=== PATIENT | female | born 1940 | race Caucasian/White ===

== ENCOUNTER 2017-02-15 18:25 | Emergency (ER) | payer MEDICARE, OTHER ==
[2017-02-15 19:44] VITALS: BP 148/88
[2017-02-15] MEDS ORDERED: Ipratropium 0.5MG/2.5ML NEB* 0.5 MG/2.5 ML NEB.SOLN INH ONE (20:10)
[2017-02-15] MEDS ORDERED: Albuterol 2.5 MG/3 ML NEB.SOL* (0.083%) INH ONE (20:10)
--- NOTE | 2017-02-15 20:11 | UC ---
Respiratory Complaint HPI - History of Current Complaint Stated Complaint: THROAT,FEVER Hx Obtained From: Patient Hx Last Menstrual Period: n/a Onset/Duration: Sudden Onset - 4 days ago with earache, sorethroat and headache. , Worse Since - yesterday with fevers, coughing more SOB. Timing: Constant Severity Initially: Mild Severity Currently: Moderate Character: Cough: Nonproductive Associated Signs And Symptoms: Positive: Dyspnea, Fever, Chills, Pleuritic Chest Pain - left upper chest with coughing., Wheezing, URI, Hoarseness. Negative: Nasal Congestion - Risk Factors Pulmonary Embolism Risk Factors: Smoking Cardiac Risk Factors: Smoking Pseudomonas Risk Factors: Chronic Lung Disease - Allergies/Home Medications Allergies/Adverse Reactions: Allergies Allergy/AdvReac Type Severity Reaction Status Date / Time Amoxicillin Allergy Severe Swelling Verified 02/15/17 19:44 Of Face,Lips,& Throat Home Medications: Home Medications Acetaminophen [Acetaminophen Extra Stren] 1,000 mg PO Q6H PRN 02/15/17 [History Confirmed 02/15/17] Ipratropium HFA INHALER(NF) [Atrovent Hfa Inhaler(NF)] 2 puff INH Q6H PRN [History Confirmed 02/15/17] PMH/Surg Hx/FS Hx/Imm Hx Respiratory History: COPD - Surgical History Surgical History: Yes Surgery Procedure, Year, and Place: Bilateral Inguinal Herniorrhaphy, - Family History Known Family History: Positive: Cardiac Disease, Hypertension, Diabetes - Social History Occupation: Retired Lives: With Family Alcohol Use: None Substance Use Type: None Smoking Status (MU): Current Every Day Smoker Type: Cigarettes Amount Used/How Often: 1ppd Length of Time of Smoking/Using Tobacco: 60 years Have You Smoked in the Last Year: Yes When Did the Patient Quit Smoking/Using Tobacco: quit 04/2015 Household Exposure Type: Cigarettes Cessation Counseling: Patient Advised to Stop - Immunization History Most Recent Influenza Vaccination: 3618-0441 Most Recent Pneumonia Vaccination: 2013 Review of Systems Constitutional: Fever, Chills ENT: Sore Throat, Ear Ache Respiratory: Shortness Of Breath, Cough Cardiovascular: Chest Pain - with coughing Neurological: Headache - frontal. All Other Systems Reviewed And Are Negative: Yes Physical Exam Triage Information Reviewed: Yes Appearance: No Pain Distress, Well-Nourished, Ill-Appearing Vital Signs: Initial Vital Signs Temp 99.4 F 02/15/17 19:28 Pulse 97 02/15/17 19:28 Resp 38 02/15/17 19:28 BP 148/88 02/15/17 19:28 Pulse Ox 88 02/15/17 19:28 Vital Signs Reviewed: Yes Eyes: Positive: Conjunctiva Inflamed ENT: Positive: Pharyngeal erythema - with white on the soft palate behind denture plate.. Negative: TMs normal - obscurred by wax bilaterally UC Diagnostic Evaluation - Laboratory O2 Sat by Pulse Oximetry: 88 Re-Evaluation - Re-Evaluation First Eval Re-Evaluation Time: 20:58 Change: Improved - wheezing is gone. Respiratory Course/Dx - Differential Dx/Diagnosis Differential Diagnosis/HQI/PQRI: Bronchitis, Exacerbation Of COPD, Lower Resp Infection, Sinusitis Provider Diagnoses: Acute sinusitis. COPD with acute exacerbation. Discharge - Discharge Plan Condition: Stable Disposition: HOME Prescriptions: Sulfamethox/Trimethoprim DS* [Bactrim DS 800/160 TAB*] 1 tab PO BID #20 tab predniSONE TAB* [Deltasone TAB*] 20 mg PO DAILY #18 tab Patient Education Materials: Sinusitis (ED), Sulfamethoxazole/Trimethoprim (By mouth), COPD (Chronic Obstructive Pulmonary Disease) (ED), Prednisone (By mouth) Referrals: Mert Jacob MD [Primary Care Provider] - 3 Days (Recheck breathing and oxygen status.)
[2017-02-15] MEDS ORDERED: Ibuprofen TAB* 600 MG PO ONE (20:36)
[2017-02-15] MEDS ORDERED: methylPREDNISolone 125 MG* 2 ML VIAL IM ONE (20:57)
[2017-02-15] MEDS ORDERED: Sulfamethox/Trimethoprim DS 800/160* TAB PO ONE ×2 (20:57→21:11)
--- NOTE | 2017-02-15 20:57 | RAD ---
HISTORY: Cough, fever, shortness of breath COMPARISONS: October 08, 2014 VIEWS: 4: Frontal dual-energy and lateral views of the chest. FINDINGS: CARDIOMEDIASTINAL SILHOUETTE: The cardiomediastinal silhouette is normal. TIFFANY: The tiffany are normal. PLEURA: The costophrenic angles are sharp. No pleural abnormalities are noted. LUNG PARENCHYMA: There is hyperinflation with flattening of the diaphragm and expansion of the AP diameter of the chest. ABDOMEN: The upper abdomen is clear. There is no subphrenic gas. BONES AND SOFT TISSUES: No bone or soft tissue abnormalities are noted. OTHER: None. IMPRESSION: HYPERINFLATION, CONSISTENT WITH COPD. NO ACTIVE CARDIOPULMONARY DISEASE.
== END 2017-02-15 21:23 | disposition home or self-care (01) ==
LOC: UCCORT 18:25
DX: J01.90 Acute sinusitis, unspecified (principal); J44.1 Chronic obstructive pulmonary disease with (acute) exacerbation; Z87.891 Personal history of nicotine dependence
CPT/HCPCS: 71020; 93005; 96372; 99212; A9270-GY; G0463; J2930; J7644

== ENCOUNTER 2017-02-21 12:51 | Emergency (ER) | payer MEDICARE, OTHER ==
[2017-02-21 13:35] VITALS: BP 150/83
--- NOTE | 2017-02-21 13:47 | UC ---
Throat Pain/Nasal Chaitanya HPI - HPI Summary HPI Summary: sore throat x 2 days has been on prednisone and bactirm for the past 6 days and no having sever sore throat, mouth pain , no fever, no chills, c/o cough / chest congestion x 2 weeks - History of Current Complaint Chief Complaint: UCRespiratory Stated Complaint: SORE THROAT Time Seen by Provider: 02/21/17 13:36 Hx Obtained From: Patient Hx Last Menstrual Period: n/a Onset/Duration: Gradual Onset, Lasting Days - 2, Still Present Severity: Severe Cough: Productive - green and yellow sputum Associated Signs & Symptoms: Positive: Nasal Discharge. Negative: Sinus Discomfort, Fever, Vomiting, Rash - Allergies/Home Medications Allergies/Adverse Reactions: Allergies Allergy/AdvReac Type Severity Reaction Status Date / Time Amoxicillin Allergy Severe Swelling Verified 02/21/17 13:24 Of Face,Lips,& Throat PMH/Surg Hx/FS Hx/Imm Hx Previously Healthy: Yes Cardiovascular History: Hypertension Respiratory History: COPD - Surgical History Surgical History: Yes Surgery Procedure, Year, and Place: Bilateral Inguinal Herniorrhaphy, - Family History Known Family History: Positive: None, Cardiac Disease, Hypertension, Diabetes - Social History Alcohol Use: None Substance Use Type: None Smoking Status (MU): Current Every Day Smoker Type: Cigarettes Amount Used/How Often: 3 CIGS PER DAY Length of Time of Smoking/Using Tobacco: 60 years Have You Smoked in the Last Year: Yes When Did the Patient Quit Smoking/Using Tobacco: quit 04/2015 Household Exposure Type: Cigarettes - Immunization History Most Recent Influenza Vaccination: [id number] Most Recent Pneumonia Vaccination: 2013 Review of Systems Constitutional: Negative Skin: Negative Eyes: Negative ENT: Sore Throat Respiratory: Cough Cardiovascular: Negative Gastrointestinal: Negative All Other Systems Reviewed And Are Negative: Yes Physical Exam Triage Information Reviewed: Yes Appearance: Well-Appearing, No Pain Distress, Well-Nourished Vital Signs: Initial Vital Signs Temp 98.2 F 02/21/17 13:26 Pulse 74 02/21/17 13:26 Resp 24 02/21/17 13:26 BP 150/83 02/21/17 13:26 Pulse Ox 95 02/21/17 13:26 Vital Signs Reviewed: Yes Eyes: Positive: Conjunctiva Clear ENT: Positive: Normal ENT inspection, Hearing grossly normal, Pharyngeal erythema - + thrush Respiratory: Positive: Chest non-tender, Lungs clear, Normal breath sounds, No respiratory distress Cardiovascular: Positive: RRR, No Murmur, Pulses Normal Abdominal Exam: Normal Skin Exam: Normal Throat Pain/Nasal Course/Dx - Differential Dx/Diagnosis Provider Diagnoses: oral thrush. bronchitis Discharge - Discharge Plan Condition: Stable Disposition: HOME Prescriptions: Nystatin SUSPENSION ORAL SYR* 5 ml PO QID #200 ml Patient Education Materials: Oral Candidiasis (ED), Acute Bronchitis (ED) Referrals: Mert Jacob MD [Primary Care Provider] - 7 Days
== END 2017-02-21 14:05 | disposition home or self-care (01) ==
LOC: UCCORT 12:51
DX: B37.0 Candidal stomatitis (principal); J40 Bronchitis, not specified as acute or chronic; R09.81 Nasal congestion; I10 Essential (primary) hypertension; J44.9 Chronic obstructive pulmonary disease, unspecified; Z88.1 Allergy status to other antibiotic agents; Z87.891 Personal history of nicotine dependence
CPT/HCPCS: 99212; G0463

== ENCOUNTER 2018-08-29 15:40 | Emergency (ER) | payer MEDICARE, OTHER ==
[2018-08-29] MEDS ORDERED: predniSONE TAB* 20 MG PO ONE (15:50)
[2018-08-29] MEDS ORDERED: Albuterol/Ipratropium NEB.SOL* Albuterol 2.5 MG/Ipratropium 0.5 MG 3 ML INH ONE (15:50)
--- NOTE | 2018-08-29 15:55 | UC ---
UC General HPI - HPI Summary HPI Summary: pt c/o increasing cough with congestion and sob x 3-4 days. denies fever and cp. hx copd and this is c/w a flare. never hospitalized for her COPD. - History of Current Complaint Chief Complaint: UCRespiratory Stated Complaint: SINUS/COUGH/CONGESTION Time Seen by Provider: 08/29/18 15:43 Hx Obtained From: Patient Hx Last Menstrual Period: n/a Onset/Duration: Gradual Onset Timing: Constant Pain Intensity: 6 Associated Signs & Symptoms: Positive: Cough, SOB, Wheezing. Negative: Chest Pain, Fever - Allergy/Home Medications Allergies/Adverse Reactions: Allergies Allergy/AdvReac Type Severity Reaction Status Date / Time amoxicillin Allergy Swelling Verified 08/29/18 15:46 Of Face,Lips,& Throat PMH/Surg Hx/FS Hx/Imm Hx Respiratory History: COPD - Surgical History Surgical History: Yes Surgery Procedure, Year, and Place: Bilateral Inguinal Herniorrhaphy, - Family History Known Family History: Positive: None, Cardiac Disease, Hypertension, Diabetes - Social History Alcohol Use: None Substance Use Type: None Smoking Status (MU): Former Smoker Type: Cigarettes Amount Used/How Often: 3 CIGS PER DAY Length of Time of Smoking/Using Tobacco: 60 years Have You Smoked in the Last Year: Yes When Did the Patient Quit Smoking/Using Tobacco: quit 04/2015 Household Exposure Type: Cigarettes - Immunization History Most Recent Influenza Vaccination: [id number] Most Recent Pneumonia Vaccination: 2013 Vaccination Up to Date: Yes Review of Systems All Other Systems Reviewed And Are Negative: Yes Constitutional: Positive: Negative Skin: Positive: Negative Eyes: Positive: Negative ENT: Positive: Negative Respiratory: Positive: Shortness Of Breath, Cough Cardiovascular: Negative: Palpitations, Chest Pain Gastrointestinal: Positive: Negative Genitourinary: Positive: Negative Motor: Positive: Negative Neurovascular: Positive: Negative Musculoskeletal: Positive: Negative Neurological: Positive: Negative Psychological: Positive: Negative Physical Exam Triage Information Reviewed: Yes Appearance: Well-Appearing Vital Signs: Initial Vital Signs Temp 97.5 F 08/29/18 15:42 Pulse 90 08/29/18 15:42 Resp 28 08/29/18 15:42 BP 128/74 08/29/18 15:42 Pulse Ox 94 08/29/18 15:42 Vital Signs Reviewed: Yes Eyes: Positive: Conjunctiva Clear ENT: Positive: TMs normal, Other - Erythema to posterior pharynx adn roof of mouth with white plaques. Negative: Nasal congestion, Nasal drainage Neck: Positive: Supple, Nontender, No Lymphadenopathy, Other: - No JVD Respiratory: Positive: Other: - Mild tachypnia and dyspnea with conversation. BS diffusely decreased with scattered mac wheezes. Cough is harsh and bronchospastic but non productive. Cardiovascular: Positive: RRR, No Murmur Abdomen Description: Positive: Nontender, No Organomegaly, Soft Bowel Sounds: Positive: Present Musculoskeletal: Positive: ROM Intact Neurological: Positive: Alert Psychological: Positive: Age Appropriate Behavior Skin Exam: Normal Diagnostics - Radiology No standard instances Radiology Interpretation Completed By: Radiologist - CXR=HYPERINFLATION, CONSISTENT WITH COPD. NO ACTIVE CARDIOPULMONARY DISEASE Re-Evaluation - Re-Evaluation First Eval Re-Evaluation Time: 16:00 Change: Improved - slight better aeration Second Eval Re-Evaluation Time: 17:01 Change: Improved - pt continues to feel breathing is a little easier and aeration has improved but pt is still very wheezy and rr=28. Course/Dx - Course Course Of Treatment: pt continues to have RR 28 and some sob with conversation alone plus persistent cough thus ER transfer advised. pt refused despite risk for worsening, disability and . she is a&o. she is able to make decisions thus I must respect her refusal of transfer to ER. she agrees to leave ama. - Differential Dx - Multi-Symptom Differential Diagnoses: Other - bronchitis, copd exacerbation, pneumonia. no concern for CHF, cardiac pathology. doubt influenza plus pt had immunization and is refusing testing for that. - Diagnoses Provider Diagnosis: Thrush, oral, COPD exacerbation Discharge - Sign-Out/Discharge Documenting (check all that apply): Patient Departure All imaging exams completed and their final reports reviewed: Yes - Discharge Plan Condition: Stable Disposition: AGAINST MEDICAL ADVICE Prescriptions: DOXYcycline CAP(*) [DOXYcycline 100MG CAP(*)] 100 mg PO BID 7 Days #14 cap Nystatin SUSPENSION* 500,000 units .SEE ORDER QID 10 Days #200 ml predniSONE [Prednisone 20 MG TAB] 40 mg PO DAILY 5 Days #10 tablet Patient Education Materials: Oral Candidiasis (ED), COPD (Chronic Obstructive Pulmonary Disease) (ED) Referrals: Mert Jacob MD [Primary Care Provider] - 1 Day Additional Instructions: GO TO ER AT ANY TIME IF YOU CHANGE YOUR MIND. USE YOU NEBULIZER EVERY 6 HOURS. - Billing Disposition and Condition Condition: STABLE Disposition: Against Medical Advice
[2018-08-29] MEDS ORDERED: Albuterol 2.5 MG/3 ML NEB.SOL* (0.083%) INH ONE (16:24)
[2018-08-29 16:56] VITALS: BP 117/72
[2018-08-29] MEDS ORDERED: Nystatin SUSPENSION* 100000 UNITS/ML 5 ML UDC PO ONE ×2 (17:10→17:16)
[2018-08-29] MEDS ORDERED: DOXYcycline CAP(*) 100 MG PO ONE (17:14)
== END 2018-08-29 17:28 | disposition left against medical advice (07) ==
LOC: UCCORT 15:40
DX: J44.1 Chronic obstructive pulmonary disease with (acute) exacerbation (principal); B37.0 Candidal stomatitis; J39.2 Other diseases of pharynx; R09.81 Nasal congestion; Z88.0 Allergy status to penicillin; Z87.891 Personal history of nicotine dependence
CPT/HCPCS: 71046; 99213; A9270-GY; G0463; J7512

== ENCOUNTER 2019-01-10 20:17 | Inpatient (IN) | payer MEDICARE ==
[2019-01-10] MEDS ORDERED: NS 0.9% 1000 ML** 1,000 ML IV ONE (20:32)
[2019-01-10] MEDS ORDERED: methylPREDNISolone 125 MG* 2 ML VIAL IV ONE (20:32)
[2019-01-10] MEDS ORDERED: cefTRIAXone(*) 1 GM in NS 0.9% 50 ML* 50 ML IVPB ONE (20:36)
--- NOTE | 2019-01-10 20:36 | ED ---
Shortness of Breath - HPI Summary HPI Summary: This pt is a 78 y/o female presenting to [facility] via EMS c/o SOB and productive cough. Pt reports her SOB worsened today around 15:00. She describes a productive cough with thick and yellow sputum. Pt notes she has lower chest pain associated with her cough. Additionally she presents to the ED with a fever of 101.9F. Pt was given albuterol x1 and Atrovent at home [employer]. She has hx of COPD. She does not use any oxygen at baseline at home. Pt quit smoking in August 2018. - History of Current Complaint Chief Complaint: EDShortnessOfBreath Time Seen by Provider: 01/10/19 20:29 Hx Obtained From: Patient Onset/Duration: Lasting Hours, Still Present Timing: Constant Current Severity: Moderate Dyspnea At: Rest Aggrevating Factors: Nothing Alleviating Factors: Nothing Associated Signs & Symptoms: Cough (Productive), Chest Pain w/Cough, Fever - Allergy/Home Medications Allergies/Adverse Reactions: Allergies Allergy/AdvReac Type Severity Reaction Status Date / Time amoxicillin Allergy Swelling Verified 08/29/18 15:46 Of Face,Lips,& Throat PMH/Surg Hx/FS Hx/Imm Hx Endocrine/Hematology History: Denies: Hx Diabetes, Hx Thyroid Disease Cardiovascular History: Denies: Hx Hypertension, Other Cardiovascular Problems/Disorders Respiratory History: Reports: Hx Chronic Obstructive Pulmonary Disease (COPD) Denies: Hx Asthma GI History: Denies: Hx Ulcer Comment Only: Other GI Disorders - dubble hernia repair rt and lt groin area Musculoskeletal History: Reports: Hx Arthritis - LEFT HIP Sensory History: Reports: Hx Cataracts - JAN, Hx Contacts or Glasses - GLASSES Denies: Hx Hearing Aid Opthamlomology History: Reports: Hx Cataracts - JAN, Hx Contacts or Glasses - GLASSES - Surgical History Surgery Procedure, Year, and Place: Bilateral Inguinal Herniorrhaphy, Hx Anesthesia Reactions: Yes - N/V Infectious Disease History: No Infectious Disease History: Denies: Hx Clostridium Difficile, Hx Hepatitis, Hx Human Immunodeficiency Virus (HIV), Hx of Known/Suspected MRSA, Hx Shingles, Hx Tuberculosis, Hx Known/ Suspected VRE, Hx Known/Suspected VRSA, History Other Infectious Disease, Traveled Outside the [place] in Last 30 Days - Family History Known Family History: Positive: Cardiac Disease, Hypertension, Diabetes - Social History Alcohol Use: None Substance Use Type: Reports: None Smoking Status (MU): Former Smoker Type: Cigarettes Amount Used/How Often: 3 CIGS PER DAY Length of Time of Smoking/Using Tobacco: 60 years Have You Smoked in the Last Year: Yes Review of Systems Positive: Fever Positive: Chest Pain Positive: Shortness Of Breath, Cough All Other Systems Reviewed And Are Negative: Yes Physical Exam - Summary Physical Exam Summary: VITAL SIGNS: Reviewed. GENERAL: Patient is a well-developed and nourished female. Patient is able to speak in partial sentences. HEAD AND FACE: No signs of trauma. No ecchymosis, hematomas or skull depressions. No sinus tenderness. EYES: PERRLA, EOMI x 2, No injected conjunctiva, no nystagmus. EARS: Hearing grossly intact. Ear canals and tympanic membranes are within normal limits. MOUTH: Oropharynx within normal limits. NECK: Supple, trachea is midline, no adenopathy, no JVD, no carotid bruit, no c- spine tenderness, neck with full ROM. CHEST: Symmetric, no tenderness at palpation LUNGS: Decreased breath sounds bilaterally. Crackles in both bases of the lungs. Patient is coughing. CVS: Regular rate and rhythm, S1 and S2 present, no murmurs or gallops appreciated. ABDOMEN: Soft, non-tender. No signs of distention. No rebound no guarding, and no masses palpated. Bowel sounds are normal. EXTREMITIES: FROM in all major joints, no edema, no cyanosis or clubbing. NEURO: Alert and oriented x 3. No acute neurological deficits. Speech is normal and follows commands. SKIN: Dry and warm Triage Information Reviewed: Yes Vital Signs On Initial Exam: Initial Vitals Temp Pulse Resp BP Pulse Ox 101.9 F 98 26 146/60 96 01/10/19 20:20 01/10/19 20:20 01/10/19 20:20 01/10/19 20:20 01/10/19 20:20 Vital Signs Reviewed: Yes Diagnostics - Vital Signs Vital Signs Temp Pulse Resp BP Pulse Ox 01/10/19 20:20 101.9 F 98 26 146/60 96 - Laboratory Result Diagrams: 01/10/19 20:57 01/10/19 20:57 Lab Statement: Any lab studies that have been ordered have been reviewed, and results considered in the medical decision making process. - Radiology Chest XR Radiology Interpretation Completed By: ED Physician Summary of Radiographic Findings: Hyperinflation of both lungs. Questionable infiltrate in right lower lung. Pending official report. - EKG 21:04 Cardiac Rate: Tachycardia - at 111 bpm EKG Rhythm: Sinus Tachycardia Ectopy: PVCs Re-Evaluation - Re-Evaluation First Eval Re-Evaluation Time: 21:42 Comment: Pt is still having wheezing and decreased breath sounds. She is slightly tachycardic. Pt is able to speak in full sentences. Course/Dx - Course Assessment/Plan: This pt is a 78 y/o female presenting to [facility] [place] c/o SOB and productive cough. Pt reports her SOB worsened today around 15:00. She describes a productive cough with thick and yellow sputum. Pt notes she has lower chest pain associated with her cough. Additionally she presents to the ED with a fever of 101.9F. Pt was given albuterol x1 and Atrovent at home [employer]. She has hx of COPD. She does not use any oxygen at baseline at home. Pt quit smoking in August 2018. Past medical history significant for COPD, cataracts, and chronic back pain. In the ED course the patient was placed in a electronic device monitor, IV access was obtained she was given Solu-Medrol and DuoNebs. Patient has a fever and a productive cough therefore she was started on Rocephin. Blood work without any significant abnormality except for white blood cell count of 11.2, CRP of 13.6 and glucose of 125. chest x-ray impression : Hyperinflated lungs, may show some scar tissue in both apices of the lungs, and may have some infiltration versus atelectasis in the right lower lobe. The patient is able to speak in full sentences and now she is feeling a little better, however the patient still has diffuse wheezing and decreased breath sounds. Therefore, I discussed my physical exam and findings with Dr. Holcomb from the hospitalist services and she accepted the patient for admission. Patient is hemodynamically stable, alert and oriented 3. - Diagnoses Provider Diagnoses: COPD exacerbation - Physician Notifications Discussed Care of Patient With: Deloris Holcomb - hospitalist Time Discussed With Above Provider: 21:46 Instructed by Provider To: Admit As Inpatient Discharge - Sign-Out/Discharge Documenting (check all that apply): Patient Departure - Admit to [facility] [place] Received Moderate/Deep Sedation with Procedure: No - Discharge Plan Condition: Stable Disposition: ADMITTED TO [facility] Referrals: Mert Jacob MD [Primary Care Provider] - - Attestation Statements Document Initiated by Scribe: Yes Documenting Scribe: Karen Alejandra Provider For Whom Scribe is Documenting (Include Credential): Bo Jackson MD Scribe Attestation: Karen Gentile, scribed for Bo Jackson MD on 01/10/19 at 2150. Status of Scribe Document: Ready
[2019-01-10] MEDS ORDERED: Albuterol 2.5 MG/3 ML NEB.SOL* (0.083%) INH ONE (21:00)
[2019-01-10] MEDS ORDERED: Albuterol/Ipratropium NEB.SOL* Albuterol 2.5 MG/Ipratropium 0.5 MG 3 ML ONE (21:05)
[2019-01-10] MEDS: Albuterol/Ipratropium NEB.SOL* Albuterol 2.5 MG/Ipratropium 0.5 MG 3 ML INH SCH ×3 (21:05→21:32)
[2019-01-10 21:13] LABS: ABS Basophils 0.1 10^3/ul (0-0.2); ABS Eosinophils 0.1 10^3/ul (0-0.6); ABS Lymphocytes 1.2 10^3/ul (1.0-4.8); ABS Monocytes 0.9 10^3/ul (0-0.8); ABS Neutrophils 9.1 10^3/ul (1.5-7.7); Eosinophil % 0.5 %; Hematocrit 44 % (35-47); Hemoglobin 14.5 g/dL (12.0-16.0); Lymphocyte % 10.4 %; Mean Corpuscular HGB Conc 33 g/dL (31-36); Mean Corpuscular Hemoglobin 30 pg (27-31); Mean Corpuscular Volume 92 fL (80-97); Mean Platelet Volume 8.2 fL (7.4-10.4); Platelet Count 304 10^3/uL (150-450); Red Blood Count 4.85 10^6 /uL (3.70-4.87); Red Cell Distribution Width 14 % (10.5-15); White Blood Count 11.2 10^3/uL (3.5-10.8)
[2019-01-10 21:25] LABS: Activated Partial Thrombo Time 32.7 seconds (26.0-38.0); INR 0.97 (0.82-1.09)
[2019-01-10 21:30] LABS: Albumin 4.3 g/dL (3.2-5.2); Albumin/Globulin Ratio 1.2 (1-3); BUN/Creatinine Ratio 15.2 (8-20); C Reactive Protein 13.65 mg/L (<8.01); Calcium 8.9 mg/dL (8.6-10.3); EGFR African American 71.6 (>60); EGFR Non-African American 59.2 (>60); Globulin 3.6 g/dL (2-4); Potassium 3.8 mmol/L (3.5-5.0); Total Bilirubin 0.3 mg/dL (0.2-1.0); Total Protein 7.9 g/dL (6.4-8.9)
[2019-01-10 21:35] LABS: CKMB ng/mL 2.6 ng/mL (0.6-6.3)
[2019-01-10 21:52] LABS: Urine Appearance Clear; Urine Bacteria Absent (Absent); Urine Bilirubin Negative (Negative); Urine Blood Negative (Negative); Urine Color Yellow; Urine Glucose Negative (Negative); Urine Ketones Negative (Negative); Urine Nitrite Negative (Negative); Urine Protein Negative (Negative); Urine Red Blood Cell Trace(0-2/hpf) (Absent); Urine Specific Gravity 1.012 (1.010-1.030); Urine Squamous Epithelial Cell Present (Absent); Urine Urobilinogen Negative (Negative); Urine White Blood Cell 3+(>20/hpf) (Absent)
[2019-01-10] MEDS ORDERED: Acetaminophen TAB* 325 MG PO ONE (22:13)
[2019-01-10] MEDS ORDERED: Acetaminophen TAB* 325 MG PO PRN (22:13)
[2019-01-10] MEDS ORDERED: Al Hydrox/Mg Hydrox/Simet LIQ* 30 ML UDC PO PRN (22:15)
[2019-01-10] MEDS ORDERED: IPRATROPIUM INH PRN (22:19)
[2019-01-10] MEDS ORDERED: Levalbuterol 1.25MG/0.5ML NEB INH PRN (22:20)
[2019-01-10] MEDS ORDERED: Lactated Ringers 1000 ML Bag* 1,000 ML IV ONE (22:23)
[2019-01-10] MEDS ORDERED: Azithromycin 500 mg/250 ml NS 500 MG/250 ML BAG IVPB ONE (22:24)
[2019-01-10] MEDS ORDERED: Albuterol 2.5 MG/3 ML NEB.SOL* (0.083%) INH SCH (23:00)
[2019-01-10] MEDS ORDERED: Lactated Ringers 1000 ML Bag* 1,000 ML IV SCH (23:00)
[2019-01-10] MEDS: Levalbuterol 1.25MG/0.5ML NEB INH SCH (23:25)
[2019-01-11 00:08] LABS: Influenza A Molecular NEGATIVE (Negative); Influenza B Molecular NEGATIVE (Negative)
[2019-01-11] MEDS: Enoxaparin(*) 40 MG/0.4 ML SYR SUBCUT SCH ×2 (00:17→22:29)
[2019-01-11] MEDS: Benzonatate CAP* 100 MG PO PRN ×2 (00:18→08:21)
--- NOTE | 2019-01-11 00:39 | HP ---
CC: Mert Jacob MD * HISTORY AND PHYSICAL: DATE OF ADMISSION: 01/10/19 TIME OF EVALUATION: 0 PRIMARY CARE PHYSICIAN: Mert Jacob MD. CHIEF COMPLAINT: Shortness of breath. HISTORY OF PRESENT ILLNESS: This is a 78-year-old female with past medical history of COPD, on room air, who presents to the emergency room with acute onset of shortness of breath. She has had a productive cough for the past the 2 days and today got significantly worse with no improvement with her nebulizer treatment. She quit smoking back in August, was a heavy smoker at that time. She has been trying to get oxygen from her primary care physician, but he states she does not qualify for it. She does have an oxygen saturation monitor at home and she states it was reading 67% before she called the EMS for further evaluation. She does have a pleuritic chest pain over her chest, on her sides, over her ribs with coughing. No nausea, vomiting, or diarrhea. No abdominal pain, no diaphoresis. No rash. No sick contacts. She is complaining of a frontal headache. In the emergency room, the patient had labs, imaging. She was given a liter of normal saline, Solu-Medrol 125 mg, ceftriaxone 1 g, DuoNeb x3, and referred to the hospitalist service for further evaluation. She states her breathing has improved since arrival. Once she quit smoking in August, she lost 20 pounds. No further changes in her weight since then. No swelling in her lower extremities. Otherwise, remaining review of systems is negative. PAST MEDICAL HISTORY: COPD, on room air. MEDICATIONS: 1. Atrovent 2 puffs inhaled every 6 hours as needed. 2. Tylenol 1000 mg every 6 hours as needed. 3. Xopenex 1 puff every 6 hours as needed. 4. Symbicort 2 puffs inhaled b.i.d. 5. Albuterol neb every 4 hours as needed. ALLERGIES: AMOXICILLIN; swelling of face, lips, and throat. SOCIAL HISTORY: The patient lives at home with her Americo who is her healthcare proxy. As mentioned, she quit smoking in August 2018. She was smoking a pack to a pack and a half per day for 63 years. No alcohol use or illicit drugs. 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 Code status is full code. REVIEW OF SYSTEMS: A 14-point review of systems as mentioned in the HPI, otherwise negative. FAMILY HISTORY: Father at age 77 from heart failure. Mother at age 63 from a blood clot and PE after surgery. PHYSICAL EXAMINATION GENERAL: In no acute distress, mildly ill appearing with several family members at the bedside. VITAL SIGNS: T-max 101.9, pulse rate is 103, respiratory rate is 20, oxygen saturation is 94% on 2 L. Blood pressure 123/82. HEENT: Head normocephalic. Pupils equal and reactive. Anicteric. Oropharynx : Mucous membranes moist. Oropharynx has erythema. No exudates or edema. RESPIRATORY: Prolonged expiratory phase with bilateral wheezing, diminished, more pronounced over the right lower lung. No increased work of breathing at this time. No tachypnea. CARDIAC: Tachycardia. Soft systolic murmur heard throughout. ABDOMEN: Soft, nontender, nondistended. EXTREMITIES: No clubbing, cyanosis, or edema. +3 DPs. NEUROLOGIC: Alert oriented x3. No gross focal neurologic deficits. DIAGNOSTIC STUDIES/LABORATORY DATA: White count 11.2, hemoglobin 14.5, hematocrit 44, platelets 304. INR 0.97. Sodium 140, potassium 3.8, chloride 106, bicarb 26, BUN 14, creatinine 0.92, glucose 125. Troponin is 0. CRP is 13.65. Lactic acid is 1.4. BNP is 90. Radiographic Data: Question of an increase in opacity in the right lower lobe. EKG: Sinus tachycardia with PVC, left anterior fascicular block. ASSESSMENT AND PLAN: This is a 78-year-old female with past medical history of chronic obstructive pulmonary disease, on room air, presents to the emergency room with acute onset of shortness of breath, hypoxia, and cough. 1. Shortness of breath, hypoxia and cough. Assessment: The patient's history and physical is most consistent with the chronic obstructive pulmonary disease exacerbation with what appears to be secondary to community-acquired pneumonia. Clinically, she has improved with treatments and steroids in the emergency room and appropriate for the floor. We will admit her to [address] [place] [address] on telemetry. Repeat a second troponin, continue her on Xopenex q.4 hours scheduled while awake and q.2 hours as needed. We will also add azithromycin for coverage of community-acquired pneumonia and continue her on ceftriaxone. We will give her another liter of LR and continue on LR IV fluids. We will initiate prednisone in the morning as well and continue her on her home inhaler regimen. The patient is requesting to be discharged home with oxygen. I discussed she needs to qualify for that for her insurance to pay for it. We discuss that they should ambulate her to see if she may need oxygen with exertion once she is clinically improved from her acute respiratory status. We will follow up on sputum culture and we will obtain a sputum culture, obtain a legionella pneumococcal antigen and follow up on blood cultures. We will also obtain influenza. 2. FEN: Place the patient on a regular diet with IV fluids. 3. DVT prophylaxis: The patient scores high risk. She is on Lovenox subcu daily. 4. Code status: Full code. PATIENT TIME: Greater than 35 minutes was spent doing the history and physical , more than half the time was direct patient contact. [id number]/CPS #: [id number] MTDD
[2019-01-11] MEDS: Levalbuterol 1.25MG/0.5ML NEB INH SCH ×6 (03:17→23:15)
[2019-01-11 06:29] LABS: ABS Lymphocytes 0.4 10^3/ul (1.0-4.8); ABS Monocytes 0.1 10^3/ul (0-0.8); ABS Neutrophils 9.8 10^3/ul (1.5-7.7); Hematocrit 39 % (35-47); Hemoglobin 13.1 g/dL (12.0-16.0); Lymphocyte % 3.7 %; Mean Corpuscular HGB Conc 33 g/dL (31-36); Mean Corpuscular Hemoglobin 30 pg (27-31); Mean Corpuscular Volume 91 fL (80-97); Mean Platelet Volume 8.4 fL (7.4-10.4); Nucleated Red Blood Cells % 0.1; Platelet Count 263 10^3/uL (150-450); Red Blood Count 4.33 10^6 /uL (3.70-4.87); Red Cell Distribution Width 15 % (10.5-15); White Blood Count 10.3 10^3/uL (3.5-10.8)
[2019-01-11 06:43] LABS: BUN/Creatinine Ratio 15.8 (8-20); Calcium 9.1 mg/dL (8.6-10.3); EGFR African American 89.3 (>60); EGFR Non-African American 73.8 (>60)
[2019-01-11] MEDS: Mometasone/Formoter 200/5 MDI INH SCH ×2 (07:58→19:37)
[2019-01-11] MEDS: predniSONE TAB* 20 MG PO SCH (08:21)
[2019-01-11] MEDS: guaiFENesin ER TAB 600 MG PO SCH ×2 (11:05→21:35)
--- NOTE | 2019-01-11 12:51 | PN ---
Subjective Date of Service: 01/11/19 Interval History: HOSPITALIST PROGRESS NOTE Patient seen and examined at bedside. Care reviewed and d/w Angy Lund RN. She states her breathing is a little better, but still has significant dyspnea on exertion. Family History: Unchanged from Admission Social History: Unchanged from Admission Past Medical History: Unchanged from Admission Objective Active Medications: Acetaminophen (Tylenol Tab*) 650 mg PO Q6H PRN PRN Reason: PAIN Last Admin: 01/11/19 08:22 Dose: 650 mg Al Hydrox/Mg Hydrox/Simethicone (Maalox Plus*) 30 ml PO Q6H PRN PRN Reason: INDIGESTION Benzonatate (Tessalon Cap*) 200 mg PO TID PRN PRN Reason: COUGH Last Admin: 01/11/19 08:21 Dose: 200 mg Enoxaparin Sodium (Lovenox(*)) 40 mg SUBCUT Q24H [facility] Last Admin: 01/11/19 00:17 Dose: 40 mg Guaifenesin (Mucinex*) 1,200 mg PO BID [facility] Last Admin: 01/11/19 11:05 Dose: 1,200 mg Azithromycin 250 mg/ Sodium (Chloride) 250 mls @ 250 mls/hr IVPB Q24H [facility] Ceftriaxone Sodium 1 gm/ (Sodium Chloride) 50 mls @ 200 mls/hr IVPB Q24H [facility] Ipratropium [place] (Atrovent Hfa Inhaler(Nf)) 2 puff INH Q6H PRN PRN Reason: SHORTNESS OF BREATH Levalbuterol HCl (Xopenex 1.25 Mg/0.5 Ml Neb.Mag*) 1.25 mg INH [id number] AWAKE [facility] Last Admin: 01/11/19 11:32 Dose: 1.25 mg Levalbuterol HCl (Xopenex 1.25 Mg/0.5 Ml Neb.Mag*) 1.25 mg INH Q2H PRN PRN Reason: SOB/WHEEZING Mometasone Furoate/Formoterol Fumar (Dulera 200/5 Mdi*) 2 puff INH BID [facility]; Protocol Last Admin: 01/11/19 07:58 Dose: 2 puff Prednisone (Deltasone Tab*) 40 mg PO DAILY [facility] Last Admin: 01/11/19 08:21 Dose: 40 mg Vital Signs - 8 hr 01/11/19 01/11/19 01/11/19 07:25 08:00 11:15 Temperature 97.4 F 97.4 F Pulse Rate 79 83 87 Respiratory 16 20 20 Rate Blood Pressure 98/59 126/63 (mmHg) O2 Sat by Pulse 95 96 96 Oximetry 01/11/19 11:35 Temperature Pulse Rate 76 Respiratory 16 Rate Blood Pressure (mmHg) O2 Sat by Pulse 97 Oximetry Oxygen Devices in Use Now: Nasal Cannula - 2 liters Appearance: Pleasant elderly lady sitting up in bed in NAD. Eyes: No Scleral Icterus Ears/Nose/Mouth/Throat: Mucous Membranes Moist Neck: Trachea Midline Respiratory: Symmetrical Chest Expansion and Respiratory Effort, - - BS+ bilaterally with scattered wheezes Cardiovascular: RRR - Normal S1 and S2 Neurological: Alert and Oriented x 3, NL Muscle Strength and Tone Result Diagrams: 01/11/19 06:05 01/11/19 06:05 Microbiology and Other Data: Microbiology 01/11/19 01:32 Gram Stain - Final Sputum 01/10/19 21:22 Legionella Urinary Antigen - Final Urine Negative Legionella Antigen Streptococcus pneumoniae Ag Screen - Final Positive S. Pneumo Antigen Assess/Plan/Problems-Billing Assessment: Mrs Sanchez is a 78yo F with PMH of COPD who presented to ED with c/o SOB, found to have COPD exacerbation/PNA. - Patient Problems (1) Acute hypoxemic respiratory failure Comment: - Secondary to COPD exacerbation. - Continue supplemental O2. (2) Pneumococcal pneumonia Comment: - Although official CxR report is of no infiltrate, agree with Dr Holcomb 's reading of possible opacity in RLL. - Pneumococcal Ag positive. - Continue Ceftriaxone and Zithromax. (3) COPD exacerbation Comment: - Secondary to pneumonia - see above. - Continue bronchodilators and steroids. (4) DVT prophylaxis Comment: - Lovenox. (5) Full code status Status and Disposition: Inpatient. Possible d/c in AM depending on symptomatic improvement. May need home O2.
[2019-01-11] MEDS: Ibuprofen TAB* 600 MG PO PRN (15:56)
[2019-01-11] MEDS: cefTRIAXone(*) 1 GM in NS 0.9% 50 ML* 50 ML IVPB SCH (21:35)
[2019-01-11] MEDS: Azithromycin IV(*) 250 MG in NS 0.9% 250 ML* 250 ML IVPB SCH (22:34)
[2019-01-12] MEDS: Levalbuterol 1.25MG/0.5ML NEB INH SCH ×5 (02:29→19:15)
[2019-01-12] MEDS: Mometasone/Formoter 200/5 MDI INH SCH ×2 (07:31→19:16)
[2019-01-12] MEDS: Ibuprofen TAB* 600 MG PO PRN (07:59)
[2019-01-12] MEDS: guaiFENesin ER TAB 600 MG PO SCH ×2 (07:59→21:02)
[2019-01-12] MEDS: predniSONE TAB* 20 MG PO SCH (07:59)
[2019-01-12] MEDS: Pantoprazole TAB * 40 MG TAB PO SCH (10:42)
[2019-01-12] MEDS: methylPREDNISolone SOD 40 MG* 1 ML VIAL IV SCH ×2 (10:42→19:52)
[2019-01-12] MEDS ORDERED: Spiriva Inhaler DEVICE* 1 EACH DEVICE INH SCH (11:00)
[2019-01-12] MEDS: Tiotropium CAP.INH* CAP.INH/18 MCG (USE ORDER SET !) INH SCH ×2 (13:25→13:27)
[2019-01-12] MEDS: traMADol TAB* 50 MG PO PRN (15:18)
--- NOTE | 2019-01-12 17:29 | PN ---
Subjective Date of Service: 01/12/19 Interval History: HOSPITALIST PROGRESS NOTE Patient seen and examined at bedside. Care reviewed and d/w Patricia Yoo RN. She still has significant dyspnea today, with wheezing and productive cough. Was not able to ambulate far due to significant dyspnea with exertion. Family History: Unchanged from Admission Social History: Unchanged from Admission Past Medical History: Unchanged from Admission Objective Active Medications: Acetaminophen (Tylenol Tab*) 650 mg PO Q6H PRN PRN Reason: PAIN Last Admin: 01/11/19 08:22 Dose: 650 mg Al Hydrox/Mg Hydrox/Simethicone (Maalox Plus*) 30 ml PO Q6H PRN PRN Reason: INDIGESTION Benzonatate (Tessalon Cap*) 200 mg PO TID PRN PRN Reason: COUGH Last Admin: 01/11/19 08:21 Dose: 200 mg Device (Tiotropium Inhaler Device*) 1 each INH .USE w/ SPIRIVA CAPS [facility] Enoxaparin Sodium (Lovenox(*)) 40 mg SUBCUT Q24H [facility] Last Admin: 01/11/19 22:29 Dose: 40 mg Guaifenesin (Mucinex*) 1,200 mg PO BID [facility] Last Admin: 01/12/19 07:59 Dose: 1,200 mg Azithromycin 250 mg/ Sodium (Chloride) 250 mls @ 250 mls/hr IVPB Q24H [facility] Last Admin: 01/11/19 22:34 Dose: 250 mls/hr Ceftriaxone Sodium 1 gm/ (Sodium Chloride) 50 mls @ 200 mls/hr IVPB Q24H [facility] Last Admin: 01/11/19 21:35 Dose: 200 mls/hr Levalbuterol HCl (Xopenex 1.25 Mg/0.5 Ml Neb.Mag*) 1.25 mg INH Q2H PRN PRN Reason: SOB/WHEEZING Levalbuterol HCl (Xopenex 1.25 Mg/0.5 Ml Neb.Mag*) 1.25 mg INH [id number] AWAKE [facility] Last Admin: 01/12/19 13:24 Dose: 1.25 mg Methylprednisolone Sodium Succinate (Solu-Medrol 40 Mg) 40 mg IV Q8H [facility] Last Admin: 01/12/19 10:42 Dose: 40 mg Mometasone Furoate/Formoterol Fumar (Dulera 200/5 Mdi*) 2 puff INH BID [facility]; Protocol Last Admin: 01/12/19 07:31 Dose: 2 puff Pantoprazole Sodium (Protonix Tab*) 40 mg PO DAILY [facility] Last Admin: 01/12/19 10:42 Dose: 40 mg Tiotropium [place] (Spiriva Cap.Inh*) 1 cap INH DAILY [facility] Last Admin: 01/12/19 13:27 Dose: Not Given Tramadol HCl (Ultram*) 50 mg PO Q8H PRN PRN Reason: PAIN Last Admin: 01/12/19 15:18 Dose: 50 mg Vital Signs - 8 hr 01/12/19 01/12/19 01/12/19 11:20 13:27 14:55 Temperature 97.7 F 98.4 F Pulse Rate 78 92 84 Respiratory 16 18 16 Rate Blood Pressure 136/73 140/81 (mmHg) O2 Sat by Pulse 98 97 99 Oximetry 01/12/19 15:18 Temperature Pulse Rate Respiratory 19 Rate Blood Pressure (mmHg) O2 Sat by Pulse Oximetry Oxygen Devices in Use Now: Nasal Cannula - 3 liters Appearance: Pleasant elderly lady sitting up in bed in NAD. Eyes: No Scleral Icterus Ears/Nose/Mouth/Throat: Mucous Membranes Moist Neck: Trachea Midline Respiratory: Symmetrical Chest Expansion and Respiratory Effort, - - BS+ bilaterally with bilateral wheezing Cardiovascular: RRR - Normal S1 and S2 Abdominal: NL Sounds; No Tenderness; No Distention Neurological: Alert and Oriented x 3, NL Muscle Strength and Tone Result Diagrams: 01/11/19 06:05 01/11/19 06:05 Microbiology and Other Data: Microbiology 01/11/19 01:32 Gram Stain - Final Sputum 01/10/19 21:22 Legionella Urinary Antigen - Final Urine Negative Legionella Antigen Streptococcus pneumoniae Ag Screen - Final Positive S. Pneumo Antigen Assess/Plan/Problems-Billing Assessment: Mrs Sanchez is a 78yo F with PMH of COPD who presented to ED with c/o SOB, found to have COPD exacerbation/PNA. - Patient Problems (1) Acute hypoxemic respiratory failure Comment: - Secondary to COPD exacerbation. - Continue supplemental O2. Will likely need home O2. (2) Pneumococcal pneumonia Comment: - Although official CxR report is of no infiltrate, agree with Dr Holcomb 's reading of possible opacity in RLL. - Pneumococcal Ag positive. - Continue Ceftriaxone and Zithromax. (3) COPD exacerbation Comment: - Secondary to pneumonia - see above. - Continue bronchodilators and steroids. - Pulm consult requested with Dr Child. (4) DVT prophylaxis Comment: - Lovenox. (5) Full code status Status and Disposition: Inpatient. Daughter updated at bedside.
[2019-01-12] MEDS: cefTRIAXone(*) 1 GM in NS 0.9% 50 ML* 50 ML IVPB SCH (21:02)
--- NOTE | 2019-01-12 22:07 | CONS ---
PULMONARY CONSULTATION REPORT: DATE OF CONSULT: 01/12/19 CONSULTATION REQUESTED BY: Dr. Joyce. REASON FOR CONSULT: Evaluation of COPD exacerbation. HISTORY OF PRESENT ILLNESS: The patient is a 78-year-old female with history of COPD, not on oxygen at home with history of recurrent bronchitis at least once to twice every year with significant smoking history, quit in August. The patient presents for evaluation of worsening shortness of breath. The patient reports she has dyspnea on exertion at baseline. She was at the store and had significant dyspnea and subsequently went home. She has been having cough, productive of yellow to green phlegm for a week, which started to get worse. She has been having significantly worsening dyspnea and decided to come into the emergency room for further evaluation. The patient reports having oxygen saturation into low 60s at home. The patient also reported fevers and chills. She also had pleuritic chest pain and worsening of pain with coughing. She has denied any known sick contacts. Denied nausea, vomiting, diarrhea, abdominal pain, diaphoresis, or rash. She has been having frontal headache. Denies any sinus issues. The patient was noted to be wheezing significantly and was in acute COPD exacerbation, received Solu-Medrol, ceftriaxone, and DuoNeb. The patient also reports losing 20 pounds since she quit smoking. Denies lower extremity swelling, urinary complaints, recent travel. PAST MEDICAL HISTORY: 1. COPD. 2. Recurrent bronchitis. MEDICATIONS: 1. Atrovent 2 puffs q.6 hours. 2. Tylenol. 3. Xopenex. 4. Symbicort. 5. Albuterol. ALLERGIES: AMOXICILLIN. FAMILY HISTORY: Father at age 77 from heart failure. Mother at age 63 from blood clot and PE after a surgical procedure. SOCIAL HISTORY: Lives at home with her . She had significant smoking history of a pack to a pack and a half per day for about 63 years and quit in August 2018. Denies alcohol or drug abuse. REVIEW OF SYSTEMS: All 14 systems reviewed, as per HPI. PHYSICAL EXAM: The patient lying in bed, in no apparent distress. Vital Signs : Temperature 98.4. She had fever of 101.9 on admission, pulse of 84 beats per minute, respiratory rate 99% on 3 L, blood pressure 140/81. HEENT: Pupils equal, reactive to light. Mucous membranes moist. No accessory muscle usage. Lungs: Diminished air entry bilaterally. Significant expiratory wheezes on auscultation. Cardiovascular: S1, S2 present, regular. Abdomen: Soft, nontender, nondistended. Bowel sounds present. Extremities: Normal range of motion. No edema. Neuro: Alert, awake, oriented x3. No focal deficits. Skin : No rash or bruises. DIAGNOSTIC STUDIES/LAB DATA: WBC count 11.2 on admission, 10.3 today, hemoglobin 13.1, hematocrit 39, platelet count of 263. Sodium 139, potassium 4.0, chloride 108, bicarb 22, BUN 12, creatinine 0.76, glucose 186, troponins within normal limits. Influenza A and B negative. Legionella antigen negative. Strep pneumo antigen positive. Blood cultures negative to date. Sputum cultures showing gram positive cocci. Further identification pending. CT brain as described above in HPI. Chest x-ray performed on admission was personally reviewed by me -evidence of hyperinflation. The patient also with prominent air bronchograms in the right base. IMPRESSION AND RECOMMENDATIONS: 78-year-old female with significant smoking history, admitted with worsening shortness of breath being treated for acute chronic obstructive pulmonary disease exacerbation and possible pneumococcal pneumonia. The patient reports having pneumococcal vaccine in the past. The patient with slightly elevated white count on admission. She also had on temperature on admission with T-max of 101. The patient still with significant wheezing on auscultation. The patient is hypoxemic with minimal exertion. She has been requiring O2 supplementation at 3 L, would titrate oxygen down to maintain oxygen saturation around 92%. Continue with nebulizers. Continue with Solu- Medrol. She is currently on 40 mg IV q.8. We will start tapering from tomorrow to 40 q.12 and further taper as tolerated. Agree with current antibiotic choice. The patient is on Symbicort at home. She could not tolerate powder inhalers. She had tried Spiriva capsule in the past. She would benefit from Spiriva Respimat upon discharge. Discussed with patient that patients with chronic obstructive pulmonary disease as per recent guidelines would not need an inhaled steroid. She could be discharged on dual bronchodilators unless she has history of asthma, however, that is which can be performed as outpatient. She will need PFTs as outpatient. Given significant smoking history, I would like to get a CT scan for further evaluation of any mass lesion. The patient reports that she had significant chronic obstructive pulmonary disease exacerbation in August that she had presented to the emergency room. The patient will be sent home with oxygen upon discharge. Will follow up as outpatient in the Pulmonary Clinic. Thank you for allowing to participate in the care of your patient. [id number]/RK #: [id number] SAMMIE
[2019-01-12] MEDS: Enoxaparin(*) 40 MG/0.4 ML SYR SUBCUT SCH (22:27)
[2019-01-12] MEDS: Azithromycin IV(*) 250 MG in NS 0.9% 250 ML* 250 ML IVPB SCH (22:27)
[2019-01-13] MEDS: Levalbuterol 1.25MG/0.5ML NEB INH SCH ×4 (01:17→20:32)
[2019-01-13] MEDS: methylPREDNISolone SOD 40 MG* 1 ML VIAL IV SCH ×2 (03:29→11:06)
[2019-01-13] MEDS: Mometasone/Formoter 200/5 MDI INH SCH ×2 (07:32→20:32)
[2019-01-13] MEDS: Tiotropium CAP.INH* CAP.INH/18 MCG (USE ORDER SET !) INH SCH (07:35)
[2019-01-13] MEDS: traMADol TAB* 50 MG PO PRN (07:51)
[2019-01-13] MEDS: guaiFENesin ER TAB 600 MG PO SCH ×2 (07:52→21:58)
[2019-01-13] MEDS: Pantoprazole TAB * 40 MG TAB PO SCH (07:52)
--- NOTE | 2019-01-13 13:46 | PN ---
Subjective Date of Service: 01/13/19 Interval History: Pt vomited her meatball lunch today. C/o abd pain in b/l upper quadrants, worse with coughing Family History: Unchanged from Admission Social History: Unchanged from Admission Past Medical History: Unchanged from Admission Objective Active Medications: Acetaminophen (Tylenol Tab*) 650 mg PO Q6H PRN PRN Reason: PAIN Last Admin: 01/11/19 08:22 Dose: 650 mg Al Hydrox/Mg Hydrox/Simethicone (Maalox Plus*) 30 ml PO Q6H PRN PRN Reason: INDIGESTION Benzonatate (Tessalon Cap*) 200 mg PO TID PRN PRN Reason: COUGH Last Admin: 01/11/19 08:21 Dose: 200 mg Device (Tiotropium Inhaler Device*) 1 each INH .USE w/ SPIRIVA CAPS [facility] Enoxaparin Sodium (Lovenox(*)) 40 mg SUBCUT Q24H [facility] Last Admin: 01/12/19 22:27 Dose: 40 mg Guaifenesin (Mucinex*) 1,200 mg PO BID [facility] Last Admin: 01/13/19 07:52 Dose: 1,200 mg Azithromycin 250 mg/ Sodium (Chloride) 250 mls @ 250 mls/hr IVPB Q24H [facility] Last Admin: 01/12/19 22:27 Dose: 250 mls/hr Ceftriaxone Sodium 1 gm/ (Sodium Chloride) 50 mls @ 200 mls/hr IVPB Q24H [facility] Last Admin: 01/12/19 21:02 Dose: 200 mls/hr Levalbuterol HCl (Xopenex 1.25 Mg/0.5 Ml Neb.Mag*) 1.25 mg INH Q2H PRN PRN Reason: SOB/WHEEZING Levalbuterol HCl (Xopenex 1.25 Mg/0.5 Ml Neb.Mag*) 1.25 mg INH [id number] AWAKE [facility] Last Admin: 01/13/19 13:19 Dose: 1.25 mg Methylprednisolone Sodium Succinate (Solu-Medrol 40 Mg) 40 mg IV Q12H [facility] Mometasone Furoate/Formoterol Fumar (Dulera 200/5 Mdi*) 2 puff INH BID [facility]; Protocol Last Admin: 01/13/19 07:32 Dose: 2 puff Pantoprazole Sodium (Protonix Tab*) 40 mg PO DAILY [facility] Last Admin: 01/13/19 07:52 Dose: 40 mg Tiotropium [place] (Spiriva Cap.Inh*) 1 cap INH DAILY [facility] Last Admin: 01/13/19 07:35 Dose: Not Given Tramadol HCl (Ultram*) 50 mg PO Q8H PRN PRN Reason: PAIN Last Admin: 01/13/19 07:51 Dose: 50 mg Vital Signs - 8 hr 01/13/19 01/13/19 01/13/19 07:15 07:35 07:51 Temperature 97.8 F Pulse Rate 70 75 Respiratory 20 18 22 Rate Blood Pressure 151/81 (mmHg) O2 Sat by Pulse 98 98 Oximetry 01/13/19 01/13/19 01/13/19 08:00 10:22 10:36 Temperature Pulse Rate Respiratory 20 24 Rate Blood Pressure (mmHg) O2 Sat by Pulse 98 Oximetry 01/13/19 01/13/19 01/13/19 10:37 10:38 11:15 Temperature 97.3 F Pulse Rate 71 Respiratory 22 Rate Blood Pressure 130/70 (mmHg) O2 Sat by Pulse 98 90 93 Oximetry 01/13/19 13:22 Temperature Pulse Rate 74 Respiratory 18 Rate Blood Pressure (mmHg) O2 Sat by Pulse 99 Oximetry Oxygen Devices in Use Now: None Appearance: 78 yo F in nAD, aAOx3 Eyes: No Scleral Icterus, PERRLA Ears/Nose/Mouth/Throat: NL Teeth, Lips, Gums, Mucous Membranes Moist Neck: NL Appearance and Movements; NL JVP, Trachea Midline Respiratory: - - distant breath sounds b/l Cardiovascular: NL Sounds; No Murmurs; No JVD, RRR Abdominal: No Hepatosplenomegaly, - - tender in b/l UQ r>L, no rebound, no guarding, BS+ Lymphatic: No Cervical Adenopathy Extremities: No Edema, No Clubbing, Cyanosis Skin: No Rash or Ulcers, No Nodules or Sclerosis Neurological: Alert and Oriented x 3 Result Diagrams: 01/11/19 06:05 01/11/19 06:05 Microbiology and Other Data: Microbiology 01/11/19 01:32 Gram Stain - Final Sputum 01/10/19 21:22 Legionella Urinary Antigen - Final Urine Negative Legionella Antigen Streptococcus pneumoniae Ag Screen - Final Positive S. Pneumo Antigen Assess/Plan/Problems-Billing Assessment: Mrs Sanchez is a 78yo F with PMH of COPD who presented to ED with c/o SOB, found to have COPD exacerbation/PNA. - Patient Problems (1) Pneumococcal pneumonia Comment: - CT shows PNA in RLL ans severe ephysema - Pneumococcal Ag positive. - Continue Ceftriaxone and Zithromax. (2) Acute hypoxemic respiratory failure Comment: - Secondary to COPD exacerbation. - Continue supplemental O2. Will likely need home O2 with walking. (3) COPD exacerbation Comment: - Secondary to pneumonia - see above. - Continue bronchodilators and steroids. - Pulm consult Dr Child, appreciated. (4) RUQ abdominal tenderness Comment: may be musculoskeletal, but pt now vomiting, will get GB US (5) DVT prophylaxis Comment: - Lovenox. Status and Disposition: Inpatient. Daughter in law and son updated at bedside.
[2019-01-13] MEDS ORDERED: Ondansetron INJ* 2 MG/ML VIAL IV PRN (14:09)
--- NOTE | 2019-01-13 18:22 | PN ---
Progress Note - Progress Note Date of Service: 01/13/19 - Pulm f/u note Note: Pt seen and examined at bedside. pt reports feeling slightly better. Had episode of food being stuck this afternoon, denies aspirating into lungs. Cough+ Active Medications Generic Name Dose Route Start Last Admin Trade Name Freq PRN Reason Stop Dose Admin Acetaminophen 650 mg 01/10/19 22:13 01/11/19 08:22 Tylenol Tab* PO 650 mg Q6H PRN Administration PAIN Al Hydrox/Mg Hydrox/Simethicone 30 ml 01/10/19 22:15 Maalox Plus* PO Q6H PRN INDIGESTION Benzonatate 200 mg 01/10/19 22:18 01/11/19 08:21 Tessalon Cap* PO 200 mg TID PRN Administration COUGH Device 1 each 01/12/19 11:00 Tiotropium Inhaler Device* INH .USE w/ SPIRIVA CAPS YUNIEL Enoxaparin Sodium 40 mg 01/10/19 23:00 01/12/19 22:27 Lovenox(*) SUBCUT 40 mg Q24H YUNIEL Administration Guaifenesin 1,200 mg 01/11/19 11:00 01/13/19 07:52 Mucinex* PO 1,200 mg BID YUNIEL Administration Ceftriaxone Sodium 1 gm/ 50 mls @ 200 mls/hr 01/11/19 21:00 01/12/19 21:02 Sodium Chloride IVPB 200 mls/hr Q24H YUNIEL Administration Levalbuterol HCl 1.25 mg 01/10/19 22:20 Xopenex 1.25 Mg/0.5 Ml Neb.Mag* INH Q2H PRN SOB/WHEEZING Levalbuterol HCl 1.25 mg 01/12/19 13:00 01/13/19 13:19 Xopenex 1.25 Mg/0.5 Ml Neb.Mag* INH 1.25 mg [id number] AWAKE YUNIEL Administration Methylprednisolone Sodium Succinate 40 mg 01/13/19 23:00 Solu-Medrol 40 Mg IV 01/13/19 23:59 Q12H YUNIEL Mometasone Furoate/Formoterol Fumar 2 puff 01/11/19 09:00 01/13/19 07:32 Dulera 200/5 Mdi* INH 2 puff BID YUNIEL Administration Protocol Ondansetron HCl 4 mg 01/13/19 14:09 01/13/19 14:18 Zofran Inj* IV 4 mg Q4H PRN Administration NAUSEA Pantoprazole Sodium 40 mg 01/12/19 11:00 01/13/19 07:52 Protonix Tab* PO 40 mg DAILY YUNIEL Administration Prednisone 60 mg 01/14/19 09:00 Deltasone Tab* PO DAILY YUNIEL Tiotropium [place] 1 cap 01/12/19 11:00 01/13/19 07:35 Spiriva Cap.Inh* INH Not Given DAILY YUNIEL Tramadol HCl 50 mg 01/12/19 10:15 01/13/19 07:51 Ultram* PO 50 mg Q8H PRN Administration PAIN Vital Signs Temp Pulse Resp BP Pulse Ox 98.3 F 70 18 114/66 92 01/13/19 15:20 01/13/19 15:20 01/13/19 15:20 01/13/19 15:20 01/13/19 17:58 O/E: Pt in NAD HEENT: PERRLA, no JVD Lungs: Dimnished air entry, wheeze+, improved CVS: S1, S2+, regular Abd: Soft, BS+ Ext: Normal ROM Skin; nO rash Neuro: nO focal deficits Labs: no new labs I/R: 78yo F with PMH of COPD who presented to ED with c/o SOB, found to have COPD exacerbation/PNA. Pt improving slowly, less wheeze today Required 1L O2 with exertion Steroids changed to prednisone c/w bronchodilators Would benefit from flutter device CT chest was personally reviewed and with pt and her daughter- Emphysema+, no suspicious nodules, PNA in rt base OOB to chair as toelrated d/c planning with 10 day taper of steroids Pt and daughter had many q`s that were answered to their satisfaction
[2019-01-13] MEDS: cefTRIAXone(*) 1 GM in NS 0.9% 50 ML* 50 ML IVPB SCH (21:59)
[2019-01-13] MEDS ORDERED: methylPREDNISolone SOD 40 MG* 1 ML VIAL IV SCH (23:00)
[2019-01-14] MEDS: Levalbuterol 1.25MG/0.5ML NEB INH SCH ×4 (01:16→19:53)
[2019-01-14] MEDS: Enoxaparin(*) 40 MG/0.4 ML SYR SUBCUT SCH ×2 (01:38→22:29)
[2019-01-14 06:15] LABS: ABS Basophils 0.1 10^3/ul (0-0.2); ABS Lymphocytes 0.4 10^3/ul (1.0-4.8); ABS Monocytes 0.3 10^3/ul (0-0.8); ABS Neutrophils 8.3 10^3/ul (1.5-7.7); Hematocrit 41 % (35-47); Hemoglobin 13.3 g/dL (12.0-16.0); Lymphocyte % 4.9 %; Mean Corpuscular HGB Conc 33 g/dL (31-36); Mean Corpuscular Hemoglobin 30 pg (27-31); Mean Corpuscular Volume 91 fL (80-97); Mean Platelet Volume 8.5 fL (7.4-10.4); Platelet Count 295 10^3/uL (150-450); Red Cell Distribution Width 14 % (10-15); White Blood Count 9.1 10^3/uL (3.5-10.8)
[2019-01-14 06:30] LABS: Albumin 3.5 g/dL (3.2-5.2); Albumin/Globulin Ratio 1.2 (1-3); BUN/Creatinine Ratio 22.1 (8-20); EGFR African American 77.4 (>60); Globulin 2.9 g/dL (2-4); Potassium 4.3 mmol/L (3.5-5.0); Total Bilirubin 0.2 mg/dL (0.2-1.0); Total Protein 6.4 g/dL (6.4-8.9)
[2019-01-14] MEDS: Tiotropium CAP.INH* CAP.INH/18 MCG (USE ORDER SET !) INH SCH (07:03)
[2019-01-14] MEDS: Mometasone/Formoter 200/5 MDI INH SCH ×2 (07:03→19:53)
[2019-01-14] MEDS: Pantoprazole TAB * 40 MG TAB PO SCH (08:48)
[2019-01-14] MEDS: guaiFENesin ER TAB 600 MG PO SCH ×2 (08:48→20:49)
[2019-01-14] MEDS: predniSONE TAB* 20 MG PO SCH (08:49)
--- NOTE | 2019-01-14 10:48 | PN ---
Subjective Date of Service: 01/14/19 Interval History: Pt had a "bad spell" today in aM. [place] like she couldn't breathe. Using flutter valve ate breakfast with no problems Family History: Unchanged from Admission Social History: Unchanged from Admission Past Medical History: Unchanged from Admission Objective Active Medications: Acetaminophen (Tylenol Tab*) 650 mg PO Q6H PRN PRN Reason: PAIN Last Admin: 01/11/19 08:22 Dose: 650 mg Al Hydrox/Mg Hydrox/Simethicone (Maalox Plus*) 30 ml PO Q6H PRN PRN Reason: INDIGESTION Benzonatate (Tessalon Cap*) 200 mg PO TID PRN PRN Reason: COUGH Last Admin: 01/11/19 08:21 Dose: 200 mg Device (Tiotropium Inhaler Device*) 1 each INH .USE w/ SPIRIVA CAPS [facility] Enoxaparin Sodium (Lovenox(*)) 40 mg SUBCUT Q24H [facility] Last Admin: 01/14/19 01:38 Dose: 40 mg Guaifenesin (Mucinex*) 1,200 mg PO BID [facility] Last Admin: 01/14/19 08:48 Dose: 1,200 mg Ceftriaxone Sodium 1 gm/ (Sodium Chloride) 50 mls @ 200 mls/hr IVPB Q24H [facility] Last Admin: 01/13/19 21:59 Dose: 200 mls/hr Levalbuterol HCl (Xopenex 1.25 Mg/0.5 Ml Neb.Mag*) 1.25 mg INH Q2H PRN PRN Reason: SOB/WHEEZING Levalbuterol HCl (Xopenex 1.25 Mg/0.5 Ml Neb.Mag*) 1.25 mg INH [id number] AWAKE [facility] Last Admin: 01/14/19 07:02 Dose: 1.25 mg Mometasone Furoate/Formoterol Fumar (Dulera 200/5 Mdi*) 2 puff INH BID [facility]; Protocol Last Admin: 01/14/19 07:03 Dose: 2 puff Ondansetron HCl (Zofran Inj*) 4 mg IV Q4H PRN PRN Reason: NAUSEA Last Admin: 01/13/19 14:18 Dose: 4 mg Pantoprazole Sodium (Protonix Tab*) 40 mg PO DAILY [facility] Last Admin: 01/14/19 08:48 Dose: 40 mg Prednisone (Deltasone Tab*) 60 mg PO DAILY [facility] Last Admin: 01/14/19 08:49 Dose: 60 mg Tiotropium [place] (Spiriva Cap.Inh*) 1 cap INH DAILY [facility] Last Admin: 01/14/19 07:03 Dose: Not Given Tramadol HCl (Ultram*) 50 mg PO Q8H PRN PRN Reason: PAIN Last Admin: 01/13/19 07:51 Dose: 50 mg Vital Signs - 8 hr 01/14/19 07:04 Pulse Rate 84 Respiratory 18 Rate O2 Sat by Pulse 95 Oximetry Oxygen Devices in Use Now: Nasal Cannula Appearance: 78 yo F in nAD, aAOx3 Eyes: No Scleral Icterus, PERRLA Ears/Nose/Mouth/Throat: NL Teeth, Lips, Gums, Mucous Membranes Moist Neck: NL Appearance and Movements; NL JVP, Trachea Midline Respiratory: Symmetrical Chest Expansion and Respiratory Effort, - - diffuse wheezes b/l-new Cardiovascular: NL Sounds; No Murmurs; No JVD, No Edema Abdominal: No Hepatosplenomegaly, - - b/l upper Q's tenderness-likely musculoskeletal, no rebound, no guarding Lymphatic: No Cervical Adenopathy Extremities: No Edema, No Clubbing, Cyanosis Skin: No Rash or Ulcers, No Nodules or Sclerosis Neurological: Alert and Oriented x 3, NL Muscle Strength and Tone Result Diagrams: 01/14/19 05:42 01/14/19 05:42 Microbiology and Other Data: Microbiology 01/11/19 01:32 Gram Stain - Final Sputum 01/10/19 21:22 Legionella Urinary Antigen - Final Urine Negative Legionella Antigen Streptococcus pneumoniae Ag Screen - Final Positive S. Pneumo Antigen Assess/Plan/Problems-Billing Assessment: Mrs Sanchez is a 78yo F with PMH of COPD who presented to ED with c/o SOB, found to have COPD exacerbation/PNA. - Patient Problems (1) Acute hypoxemic respiratory failure Comment: - Secondary to COPD exacerbation. - Continue supplemental O2. Will likely need home O2 with walking. today with more whezing and SOB. will cont to monitor x onbe more days (2) Pneumococcal pneumonia Comment: - CT shows PNA in RLL and severe ephysema - Pneumococcal Ag positive. - Continue Ceftriaxone (3) COPD exacerbation Comment: - Secondary to pneumonia - see above. - Continue bronchodilators and steroids.(switcvhed from Solu Medrol to prednisone-first dose today) - Pulm consult Dr Child, appreciated. - pt with more wheezing and SOB today, cont to monitor (4) RUQ abdominal tenderness Comment: may be musculoskeletal, BG US shows CBD at 0.8 cm , no other abn (5) DVT prophylaxis Comment: - Lovenox. Status and Disposition: Inpatient.
--- NOTE | 2019-01-14 16:47 | PN ---
Progress Note - Progress Note Date of Service: 01/14/19 - Pulm f/u note Note: Pt seen and examined at bedside. Pt reports episode of SOB today, felt like she couldnt breath. Able to tolerate diet. Active Medications Generic Name Dose Route Start Last Admin Trade Name Freq PRN Reason Stop Dose Admin Acetaminophen 650 mg 01/10/19 22:13 01/11/19 08:22 Tylenol Tab* PO 650 mg Q6H PRN Administration PAIN Al Hydrox/Mg Hydrox/Simethicone 30 ml 01/10/19 22:15 Maalox Plus* PO Q6H PRN INDIGESTION Benzonatate 200 mg 01/10/19 22:18 01/11/19 08:21 Tessalon Cap* PO 200 mg TID PRN Administration COUGH Device 1 each 01/12/19 11:00 Tiotropium Inhaler Device* INH .USE w/ SPIRIVA CAPS YUNIEL Enoxaparin Sodium 40 mg 01/10/19 23:00 01/14/19 01:38 Lovenox(*) SUBCUT 40 mg Q24H YUNIEL Administration Guaifenesin 1,200 mg 01/11/19 11:00 01/14/19 08:48 Mucinex* PO 1,200 mg BID YUNIEL Administration Ceftriaxone Sodium 1 gm/ 50 mls @ 200 mls/hr 01/11/19 21:00 01/13/19 21:59 Sodium Chloride IVPB 200 mls/hr Q24H YUNIEL Administration Levalbuterol HCl 1.25 mg 01/10/19 22:20 Xopenex 1.25 Mg/0.5 Ml Neb.Mag* INH Q2H PRN SOB/WHEEZING Levalbuterol HCl 1.25 mg 01/12/19 13:00 01/14/19 12:01 Xopenex 1.25 Mg/0.5 Ml Neb.Mag* INH 1.25 mg [id number] AWAKE YUNIEL Administration Mometasone Furoate/Formoterol Fumar 2 puff 01/11/19 09:00 01/14/19 07:03 Dulera 200/5 Mdi* INH 2 puff BID YUNIEL Administration Protocol Ondansetron HCl 4 mg 01/13/19 14:09 01/13/19 14:18 Zofran Inj* IV 4 mg Q4H PRN Administration NAUSEA Pantoprazole Sodium 40 mg 01/12/19 11:00 01/14/19 08:48 Protonix Tab* PO 40 mg DAILY YUNIEL Administration Prednisone 60 mg 01/14/19 09:00 01/14/19 08:49 Deltasone Tab* PO 60 mg DAILY YUNIEL Administration Tiotropium [place] 1 cap 01/12/19 11:00 01/14/19 07:03 Spiriva Cap.Inh* INH Not Given DAILY YUNIEL Tramadol HCl 50 mg 01/12/19 10:15 01/13/19 07:51 Ultram* PO 50 mg Q8H PRN Administration PAIN Vital Signs Temp Pulse Resp BP Pulse Ox 97.1 F 86 18 121/71 95 01/13/19 23:00 01/14/19 12:02 01/14/19 12:02 01/13/19 23:00 01/14/19 12:02 O/E: Pt in NAD HEENT: PERRLA, no JVD Lungs: Diminished air entry, wheeze+, improved CVS: S1, S2+, regular Abd: Soft, BS+ Ext: Normal ROM Skin: No rash Neuro: No focal deficits Laboratory Results - last 24 hr 01/14/19 01/14/19 05:42 05:42 WBC 9.1 RBC 4.50 Hgb 13.3 Hct 41 MCV 91 MCH 30 MCHC 33 RDW 14 Plt Count 295 MPV 8.5 Neut % (Auto) 91.1 Lymph % (Auto) 4.9 [place] % (Auto) 3.3 Eos % (Auto) 0.0 Baso % (Auto) 0.7 Absolute Neuts (auto) 8.3 H Absolute Lymphs (auto) 0.4 L Absolute Monos (auto) 0.3 Absolute Eos (auto) 0.0 Absolute Basos (auto) 0.1 Absolute Nucleated RBC 0.0 Nucleated RBC % 0.0 Sodium 141 Potassium 4.3 Chloride 105 Carbon Dioxide 30 Anion Gap 6 BUN 19 Creatinine 0.86 Est GFR ( Amer) 77.4 Est GFR (Non-Af Amer) 64.0 BUN/Creatinine Ratio 22.1 H Glucose 169 H Calcium 9.0 Total Bilirubin 0.20 AST 15 ALT 19 Alkaline Phosphatase 76 Total Protein 6.4 Albumin 3.5 Globulin 2.9 Albumin/Globulin Ratio 1.2 I/R: 78yo F with PMH of COPD who presented to ED with c/o SOB, found to have COPD exacerbation/PNA. Pt improving slowly, less wheeze today although felt winded this am Required 1L O2 with exertion on ambulatory testing yesterday On 60mg daily prednisone c/w bronchodilators Using flutter device CT chest - Emphysema+, no suspicious nodules, PNA in rt base c/w abx OOB to chair as tolerated d/c planning with 10 day taper of steroids
[2019-01-14] MEDS: cefTRIAXone(*) 1 GM in NS 0.9% 50 ML* 50 ML IVPB SCH (20:50)
[2019-01-15] MEDS: Levalbuterol 1.25MG/0.5ML NEB INH SCH ×3 (01:33→12:40)
[2019-01-15 06:11] VITALS: BP 151/87
[2019-01-15] MEDS: Mometasone/Formoter 200/5 MDI INH SCH (07:40)
[2019-01-15] MEDS: Tiotropium CAP.INH* CAP.INH/18 MCG (USE ORDER SET !) INH SCH (07:41)
[2019-01-15] MEDS: guaiFENesin ER TAB 600 MG PO SCH (08:37)
[2019-01-15] MEDS: predniSONE TAB* 20 MG PO SCH (08:37)
[2019-01-15] MEDS: Pantoprazole TAB * 40 MG TAB PO SCH (08:37)
--- NOTE | 2019-01-15 13:39 | DS ---
CC: Dr. Jacob; Dr. Child. DISCHARGE SUMMARY: DATE OF ADMISSION: 01/10/19 DATE OF DISCHARGE: 01/15/19 PRIMARY CARE PROVIDER: Dr. Jacob. cc: Dr. Child. DISPOSITION AT DISCHARGE: The patient is discharged to home. CONDITION AT DISCHARGE: Stable. DISCHARGE DIAGNOSIS: Acute hypoxemic respiratory failure due to chronic obstructive pulmonary disease exacerbation and Streptococcus pneumoniae pneumonia. SECONDARY DIAGNOSIS: History of chronic obstructive pulmonary disease. MEDICATIONS AT DISCHARGE: Include: 1. Acetaminophen on a p.r.n. basis. 2. Albuterol inhaler 1 inhalation every 4 hours p.r.n., do not use it when you recently used the nebulizer. 3. DuoNeb 1 neb every 4 hours p.r.n. 4. Symbicort 160/4.5 two puffs b.i.d. 5. Cefdinir 300 mg b.i.d. for total of 5 days and stop. 6. Mucinex 1200 mg b.i.d. for the next 2 weeks as needed for cough. 7. Omeprazole 20 mg daily. 8. Prednisone taper 60 mg for 2 days, then 40 mg for 2 days, then 20 mg for 2 days, then 10 mg for 2 days and stop. 9. Spiriva Respimat 1.25 mcg inhalation 1 to 2 inhalations daily. The patient was set up with [facility] at the discharge. The patient is going to use oxygen at 2 L continuously at home, which is new for the patient. CONSULTATIONS DURING THE HOSPITAL STAY: Included Dr. Child from Pulmonology. LABORATORY DATA AND STUDIES PERFORMED DURING THE HOSPITAL STAY: On 01/14/19, white blood cell count of 9.1, hemoglobin of 13.3, hematocrit 41, and platelets of 295. Sodium 141, potassium 4.3, chloride 105, carbon dioxide 30, BUN 19, creatinine 0.86. Influenza testing was negative. Urine Strep pneumo antigen was positive. Urine legionella antigen was negative. Brain CT obtained on 01/12/19, impression: "No acute intracranial pathology." Chest CT obtained on 01/12/19, impression: "There is severe centrilobular emphysema. There is mid bibasilar atelectatic change or scarring, cannot exclude component of patchy pneumonitis in the right lower lobe base. There is a small hiatal hernia." Gallbladder ultrasound obtained on 01/13/19, impression: "The common bile duct is dilated measuring up to 80 mm, but no visible choledocholithiasis." HOSPITALIZATION COURSE: Lili Sanchez is a 78-year-old female with history of COPD, who presented complaining of shortness of breath and cough. For details of presentation, please see history and physical dictated at admission. Shortly, the patient was in acute hypoxemic respiratory failure requiring oxygen. She was noted to have right lower lobe infiltrate and furthermore Strep pneumoniae antigen positive in the urine. She was initially treated with ceftriaxone and azithromycin, later on her antibiotics were narrowed only to ceftriaxone once it became apparent the patient has Streptococcus pneumoniae pneumonia. The patient was seen by Dr. Child in consultation, who recommended continuation of steroids as well as treatment with Spiriva Respimat and remaining inhalers. The patient was evaluated for need of oxygen at home, and she desaturated quite rapidly without oxygen and required oxygen to go home with. We had multiple family discussions about the patient's history of medical noncompliance in the past. [facility] was asked to see the patient for medication management and followup at home. The patient also recommended to follow up with her primary care provider in 4 to 7 days after discharge and with Dr. Child approximately in 1 to 2 weeks after discharge. PHYSICAL EXAMINATION AT THE TIME OF DISCHARGE: Blood pressure 151/87, heart rate of 62 and regular, respiratory rate 22, oxygen saturation 100% on 2 L of oxygen nasal cannula, and temperature 97.6. General: The patient is a very pleasant 78- year-old female who is in no acute distress. Alert, awake, and oriented x3. HEENT: Head: Atraumatic, normocephalic. Eyes: Pupils are equal and reactive to light and accommodation. Oropharynx clear. Mucosa moist. Neck : Supple. No JVD. No bruits bilaterally. Cardiovascular: Regular rate and rhythm. No murmur. Respiratory: Scant wheezes about the mid lung. Distant breath sounds in bilateral lower lobes. Abdomen: Soft, mildly tender in bilateral right upper and right lower quadrants, likely related to musculoskeletal tenderness from cough. Extremities: There is no edema. Pulses are +2 bilaterally. No clubbing or cyanosis. On neuro evaluation, speech clear. Cranial nerves II through XII grossly intact. Motor strength is 5/5 bilaterally. Psychiatric Evaluation: The patient is oriented x3, with no evidence of anxiety or depression. Please note that this is a short summary of the patient's hospital stay. Please refer to further medical records for details. TIME SPENT: Approximately 45 minutes was spent in preparation of the patient's discharge. [id number] #: [id number] MTDD
== END 2019-01-15 13:41 | disposition home or self-care (01) | DRG 193 ==
LOC: ED 20:17 → MED 23:28
PROVIDERS: ADMIT Pediatrics; ATTEND Internal Medicine
DX: J13 Pneumonia due to Streptococcus pneumoniae (principal); J96.01 Acute respiratory failure with hypoxia; M16.12 Unilateral primary osteoarthritis, left hip; H26.9 Unspecified cataract; G89.29 Other chronic pain; J43.9 Emphysema, unspecified; I44.4 Left anterior fascicular block; K44.9 Diaphragmatic hernia without obstruction or gangrene; R11.10 Vomiting, unspecified; M54.9 Dorsalgia, unspecified; Z88.0 Allergy status to penicillin; Z82.49 Family history of ischemic heart disease and other diseases of the circulatory system; Z83.3 Family history of diabetes mellitus; Z87.891 Personal history of nicotine dependence; Z91.19 Patient's noncompliance with other medical treatment and regimen
CPT/HCPCS: 36415; 70450; 71046; 71250; 76705; 80048; 80053; 81003; 81015; 82550; 82553; 83605; 83880; 84484; 85025; 85610; 85730; 86140; 87040; 87070; 87086; 87205; 87899; 93005; 94640; 99285; A9270-GY; J0456; J0696; J1650; J2405; J2920; J2930; J7512

== ENCOUNTER 2019-05-04 10:19 | Emergency (ER) | payer MEDICARE ==
--- OUTSIDE RECORDS SUMMARY | 2019-05-04 10:34 | XMS REPORT | Continuity of Care Document ---
:1940 External Reference #:[id number] Author Name Tiara Suarez O.D. Address [address] [place] [address] Care Team Providers Name Role Phone Mert Jacob M.D. Primary Care Physician Unavailable Payers Date Identification Numbers Payment Provider Subscriber Policy Number: [id number] [employer] Lili Sanchez PayID: [id number] [address] [address] [place] [address] Problems Active Problems Provider Date COPD - Chronic obstructive pulmonary Onset: disease Asthma Onset: Essential hypertension Onset: Arthritis Onset: Nonexudative age-related macular Tiara Suarez O.D. Onset: 01/10/2016 degeneration Presence of intraocular lens Tiara Suarez O.D. Onset: 01/10/2016 Bilateral age-related nonexudative macular Tiara Suarez O.D. Onset: degeneration Tear film insufficiency Tiara Suarez O.D. Onset: 01/15/2017 Patient on oxygen Tiara Suarez O.D. Onset: 03/09/2019 Family History Date Family Member(s) Observation Comments Father No Current Problems Mother No Current Problems First Brother Cataract Social History Type Date Description Comments Sex Unknown Marital Status Legal Status: Occupation [employer] Work Status Retired ETOH Use Denies alcohol use Recreational Drug Use Denies Drug Use Tobacco Use Start: Unknown Heavy tobacco smoker (more than 10 cigarettes/day) Smoking Status Reviewed: 03/09/19 Heavy tobacco smoker (more than 10 cigarettes/day) Allergies, Adverse Reactions, Alerts Active Allergies Reaction Severity Comments Date Amoxicillin 11/19/2015 Sulfa Antibiotics 01/20/2018 Medications Active Medications SIG Qnty Indications Ordering Provider Date Mert Devine M.D. 160-4.5mcg/Act Aerosol Levalbuterol Tartrate Inhale One To Two Unknown Puffs By Mouth 45mcg/Act Aerosol Every 4 Hours as Needed For Shortness Preservision Areds 2 1 cap by mouth Unknown twice a day Areds 2 Capsules Albuterol Sulfate HFA Unknown 108(90Base) mcg/Act Aerosol History Medications Preservision Areds 1 tab by mouth 1caps Tiara Suarez, 01/09/2016 - twice a day O.D. 01/14/2017 Capsules Atrovent HFA Inhale Two Puffs Unknown - 17mcg/Act By Mouth Four 03/09/2019 Aerosol Times A Day Procedures Date Code Description Status 01/20/2018 75280 Scanning Computerized Opthalmic Diagnostic Posterior Seg Completed Retina 01/20/2018 40215 Est Patient Comprehensive Exam Completed 01/15/2017 39263 Est Patient Comprehensive Exam Completed 01/10/2016 56785 Est Patient Comprehensive Exam Completed 11/23/2014 77737 Est Patient Comprehensive Exam Completed 11/09/2013 15320 Extracapsular Cataract Extraction W/Intraocular Lens Completed 10/26/2013 03891 Extracapsular Cataract Extraction W/Intraocular Lens Completed 10/24/2013 93384 Ophthalmic Biometry Completed 10/24/2013 32856 Ophthalmic Biometry Completed 10/14/2013 30904 New Patient Comprehensive Exam Completed Encounters Type Date Location Provider Dx Diagnosis Office Visit 10/24/2013 Alok Mensah, Alok Mensah, 366.16 Senile Nuclear 9:15a , flash [facility] Sclerosis / Cataract 366.16 Senile Nuclear Sclerosis / Cataract Plan of Treatment 03/09/2019 - Tiara Suarez O.D.H35.3131 Nonexudative age-related macular degeneration, bilateral, early dry stageComments:CHECK AMSLER GRID 1-2X WEEKCONTINUE PRESERVISION AREDS 2 FORMULAFollow up:1 Year Follow Up / OCT MAC You can expect to have your eyes dilated at your next visit. If Dr. Suarez orders any additional testing, it may require extra time. We recommend that you bring sunglasses, as dilation drops often make you light sensitive until they wear off. We always recommend you bringsomeone to drive you home if you are uncomfortable driving with your eyes dilated. If you have any questions before your next visit, feel free to call our office at .Z96.1 Presence of intraocular lensComments:The artificial lens implants in both eyes appear to be stable at this time.H04.123 Dry eye syndrome of bilateral lacrimal glandsComments:REFRESH LIQUIGEL OR SYSTANE GEL DROPS NEEDEDHOT COMPRESS FOR 5 - 10 MINUTES 1XDAY
--- OUTSIDE RECORDS SUMMARY | 2019-05-04 10:34 | XMS REPORT | Summary of Care ---
:1940 Author Organization [facility] Address [address] [place] [address] Care Team Providers Name Role Phone Mert Jacob MD Primary Care Provider Reason for Visit Reason Comments Urinary Tract Infection c/o lower abd pain, dysuria, urinary retention Rx inhalers pending Encounter Details Date Type Department Care Team Description 03/25/2019 Office Visit [facility] Huff, Lower abdominal pain (Primary Dx); Practice CHANGE MANAGEMENT SPECIALIST Pulmonary emphysema, unspecified emphysema type (HCC) [address] [facility] [address] [place] [address] [place] [address] [phone] Allergies Active Allergy Reactions Severity Noted Date Comments Kdc:Amoxicillin+Edetic Other 08/19/2012 Acid+Sodium Benzoate Bactrim Ds Other, GI Reaction 12/03/2013 Gi and oral candidiasis documented as of this encounter (statuses as of 03/25/2019) Medications Medication Sig Dispensed Refills Start End Status Date Date albuterol 3 mL by 360 vial 1 Active (PROVENTIL, Inhalation-SVN 8 VENTOLIN) (2.5 route EVERY MG/3ML) 0.083% SIX HOURS. Inhalation Nebu SolnIndications: Pulmonary emphysema, unspecified emphysema type (HCC) nystatin 0 Active (MYCOSTATIN) [id number] UNIT/ML Mouth/Throat Suspension Omeprazole delayed Take 20 mg by 0 Active rel cap 20 MG Oral mouth. CAPSULE DELAYED RELEASE guaifenesin Take 600 mg by 0 Active (MUCINEX) 600 MG mouth TWICE Oral TABLET SR 12 DAILY. HR Levalbuterol HCl Take by 0 Active 1.25 MG/0.5ML inhalation. Inhalation Nebu Soln ATROVENT HFA 17 Take 2 Puffs 13 g 1 Active MCG/ACT Inhalation by inhalation 9 Aero Soln FOUR TIMES inhalationIndicatio DAILY. ns: Pulmonary emphysema, unspecified emphysema type (HCC) budesonide-formoter Take 2 INHL by 10.2 g 1 Active ol fumarate inhalation 9 (SYMBICORT) 160-4.5 TWICE DAILY. MCG/ACT Inhalation AerosolIndications: Pulmonary emphysema, unspecified emphysema type (HCC) levalbuterol HFA Take 1-2 Puffs 15 g 1 Active (XOPENEX) 45 by inhalation 9 MCG/ACT Inhalation EVERY FOUR AerosolIndications: HOURS Pulmonary NEEDED (for emphysema, SOB). unspecified emphysema type (HCC) ciprofloxacin Take 1 Tab by 28 Tab 0 Active (CIPRO) 250 MG Oral mouth TWICE 9 TabIndications: DAILY. Lower abdominal pain phenazopyridine Take 1 Tab by 12 Tab 0 Active (PYRIDIUM) 100 MG mouth THREE 9 Oral TIMES DAILY TabIndications: NEEDED Lower abdominal (bladder pain pain). budesonide-formoter Take 2 INHL by 30.6 Inhaler 3 Discontinued ol fumarate inhalation 8 019 (Reorder) (SYMBICORT) 160-4.5 TWICE DAILY. MCG/ACT Inhalation Aerosol predniSONE Take 1 Tab by 35 Tab 1 Discontinued (DELTASONE) 10 MG mouth DAILY. 9 019 Oral 40 mg for 3 TabIndications: days, 30 mg Chronic obstructive for 3 days, 20 pulmonary disease mg for 3 days, with acute 10 mg for 3 exacerbation (HCC) days, 5 mg for 5 days ATROVENT HFA 17 FOUR TIMES 1 Discontinued MCG/ACT Inhalation DAILY. 9 019 (Reorder) Aero Soln inhalation levalbuterol HFA EVERY FOUR 3 Discontinued (XOPENEX) 45 HOURS 9 019 (Reorder) MCG/ACT Inhalation NEEDED. Aerosol documented as of this encounter (statuses as of 03/25/2019) Active Problems Problem Noted Date Wrist pain, left 10/17/2013 Traumatic closed fx distal end radius and ulna w/minimal displacement 2013 Hip osteoarthritis 06/28/2013 Left groin pain 04/04/2013 Elevated blood pressure reading without diagnosis of hypertension 08/19/2012 GERD (gastroesophageal reflux disease) 06/30/2008 COPD (chronic obstructive pulmonary disease) 06/30/2008 documented as of this encounter (statuses as of 03/25/2019) Resolved Problems Problem Noted Date Resolved Date Tobacco user 08/19/2012 01/22/2019 Unspecified gastritis and gastroduodenitis without mention 06/30/20082009 of hemorrhage Overview: S/P EGD, 04/11/04, Dr. Alcantar. GLOBUS SENSATION 06/30/2008 07/13/2010 Overview: Diagnosed as muscle spasms. 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 Marcos, [facility] 02/01/2004. History of Pharyngeal Cyst 06/30/2008 07/13/2010 Overview: S/P excision right hypopharynx mass, Dr. Marcos, [facility], 02/01/2004. documented as of this encounter (statuses as of 03/25/2019) Immunizations Name Administration Dates Next Due Influenza (IM) Preservative Free 04/21/2014 Influenza Vaccine High Dose 05/09/2018, 05/09/2018, 05/09/2017, 05/20/2016, 05/24/2015 PNEUMOCOCCAL POLYSACCHARIDE VACCINE 04/21/2014, 08/07/2008 Pneumococcal Conjugate(13 Valent) 05/24/2015 documented as of this encounter Social History Tobacco Use Types Packs/Day Years Used Date Former Smoker Cigarettes 1 Quit: 08/28/2018 Smokeless Tobacco: Never Used Alcohol Use Drinks/Week oz/Week Comments No Sex Assigned at Date Recorded Not on file Job Start Date Occupation Industry Not on file Not on file Not on file Travel History Travel Start Travel End No recent travel history available. documented as of this encounter Last Filed Vital Signs Vital Sign Reading Time Taken Comments Blood Pressure 122/90 03/25/2019 3:47 PM EDT Pulse 72 03/25/2019 3:47 PM EDT Temperature 37.3 03/25/2019 3:47 PM EDT C (99.2 F) Respiratory Rate - - Oxygen Saturation 95% 03/25/2019 3:47 PM EDT Inhaled Oxygen Concentration - - Weight 66.2 kg (146 lb) 03/25/2019 3:47 PM EDT Height 167.6 cm (5' 6") 03/25/2019 3:47 PM EDT Body Mass Index 23.57 03/25/2019 3:47 PM EDT documented in this encounter Patient Instructions Patient InstructionsMadison Hanna FNP - 03/25/2019 3:40 PM EDTLots of water Medication as directed Call if symptoms persistElectronically signed by Madison Hanna FNP at 2018 3:59 PM EDT documented in this encounter Progress Notes Madison Hanna FNP - 03/25/2019 3:40 PM EDT PATIENT: Lili Sanchez : 1940 DATE OF SERVICE: 03/25/2019 CHIEF COMPLAINT: Chief Complaint Patient presents with Urinary Tract Infection c/o lower abd pain, dysuria, urinary retention Rx inhalers pending Subjective HISTORY OF PRESENT ILLNESS: Lili Sanchez is a 78-y.o. female. HPI Ongoing SOB - on O2 - needs refills of all inhalers Increased lower abdominal pain x 2 days Past Medical History: Diagnosis Date Arthritis, hip 02/19 [facility] x ray COPD (chronic obstructive pulmonary disease) (HCC) 06/30/2008 GERD (gastroesophageal reflux disease) 06/30/2008 GLOBUS SENSATION 06/30/2008 Diagnosed as muscle spasms. History of Pharyngeal Cyst 06/30/2008 S/P excision right hypopharynx mass, Dr. Marcos, [facility], 02/01/2004. 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 Marcos, [facility] 02/01/2004. Tobacco use Unspecified gastritis and gastroduodenitis without mention of hemorrhage 06/30/2008 S/P EGD, 04/11/04, Dr. Alcantar. Family History Problem Relation Age of Onset Clotting Disorder Mother DVT Cancer Brother Lung Cancer Brother Lung Current Outpatient Medications Medication Sig albuterol (PROVENTIL, VENTOLIN) (2.5 MG/3ML) 0.083% Inhalation Nebu Soln 3 mL by Inhalation-SVN route EVERY SIX HOURS. ATROVENT HFA 17 MCG/ACT Inhalation Aero Soln inhalation Take 2 Puffs by inhalation FOUR TIMESDAILY. budesonide-formoterol fumarate (SYMBICORT) 160-4.5 MCG/ACT Inhalation Aerosol Take 2 INHL by inhalation TWICE DAILY. ciprofloxacin (CIPRO) 250 MG Oral Tab Take 1 Tab by mouth TWICE DAILY. guaifenesin (MUCINEX) 600 MG Oral TABLET SR 12 HR Take 600 mg by mouth TWICE DAILY. Levalbuterol HCl 1.25 MG/0.5ML Inhalation Nebu Soln Take by inhalation. levalbuterol HFA (XOPENEX) 45 MCG/ACT Inhalation Aerosol Take 1-2 Puffs by inhalation EVERY FOUR HOURS NEEDED (for SOB). nystatin (MYCOSTATIN) 503975 UNIT/ML Mouth/Throat Suspension Omeprazole delayed rel cap 20 MG Oral CAPSULE DELAYED RELEASE Take 20 mg by mouth. phenazopyridine (PYRIDIUM) 100 MG Oral Tab Take 1 Tab by mouth THREE TIMES DAILY NEEDED (bladder pain). No current facility-administered medications for this visit. Allergies Allergen Reactions Amoxicillin [Kdc:Amoxicillin+Edetic Acid+Sodium Benzoate] Other Bactrim Ds Other and GI Reaction Gi and oral candidiasis Social History Socioeconomic History Marital status: Spouse name: Not on file Number of children: Not on file Years of education: Not on file Highest education level: Not on file Occupational History Not on file Social Needs Financial resource strain: Not on file Food insecurity: Worry: Not on file Inability: Not on file Transportation needs: Medical: Not on file Non-medical: Not on file Tobacco Use Smoking status: Former Smoker Packs/day: 1.00 Types: Cigarettes Last attempt to quit: 08/28/2018 Years since quittin.5 Smokeless tobacco: Never Used Substance and Sexual Activity Alcohol use: No Drug use: No Sexual activity: Not on file Lifestyle Physical activity: Days per week: Not on file Minutes per session: Not on file Stress: Not on file Relationships Social connections: Talks on phone: Not on file Gets together: Not on file Attends religion service: Not on file Active member of club or organization: Not on file Attends meetings of clubs or organizations: Not on file Relationship status: Not on file Intimate partner violence: Fear of current or ex partner: Not on file Emotionally abused: Not on file Physically abused: Not on file Forced sexual activity: Not on file Other Topics Concern Back Care Not Asked Bike Helmet Not Asked Blood Transfusions Not Asked Caffeine Concern Not Asked Exercise Not Asked Hobby Hazards Not Asked International Travel Not Asked Service Not Asked Occupational Exposure Not Asked Seat Belt Not Asked Self-Exams Not Asked Sleep Concern Not Asked Special Diet Not Asked Stress Concern Not Asked Weight Concern Not Asked Social History Narrative Not on file REVIEW OF SYSTEMS: Review of Systems Constitutional: Positive for malaise/fatigue. Negative for chills and fever. Respiratory: Positive for cough, sputum production, shortness of breath and wheezing. Gastrointestinal: Positive for abdominal pain. Negative for diarrhea, nausea and vomiting. Genitourinary: Positive for dysuria, frequency and urgency. Negative for flank pain and hematuria. Musculoskeletal: Positive for back pain. Objective PHYSICAL EXAM: VITALS: BP 122/90 | Pulse 72 | Temp 99.2 F (37.3 C) | Ht 5' 6" ( 1.676 m) | Wt 146 lb (66.2 kg) | SpO2 95% | BMI 23.57 kg/m Body mass index is 23.57 kg/m. Physical Exam Constitutional: She is oriented to person, place, and time. Vital signs are normal. She appears well-developed and well-nourished. HENT: Head: Normocephalic and atraumatic. Mouth/Throat: Oropharynx is clear and moist. Eyes: Pupils are equal, round, and reactive to light. EOM are normal. Neck: Normal range of motion. No JVD present. Cardiovascular: Normal rate. Pulmonary/Chest: Effort normal. No stridor. No respiratory distress. She has wheezes. She has no rales. Abdominal: Soft. Bowel sounds are normal. She exhibits no distension and no mass. There is tenderness in the suprapubic area. There is no rigidity, no rebound, no guarding and no CVA tenderness. No hernia. Genitourinary: Genitourinary Comments: Urine dipstick shows negative for all components, positive for nitrites, leukocytes, red blood cells. Unable to send culture - not enough urine Lymphadenopathy: She has no cervical adenopathy. Neurological: She is alert and oriented to person, place, and time. Skin: Skin is warm and dry. She is not diaphoretic. No pallor. Vitals reviewed. ASSESSMENT / IMPRESSION: ICD-9-CM ICD-10-CM 1. Lower abdominal pain 789.09 R10.30 URINE DIP MANUAL (AMB POCT) ciprofloxacin (CIPRO) 250 MG Oral Tab phenazopyridine (PYRIDIUM) 100 MG Oral Tab 2. Pulmonary emphysema, unspecified emphysema type (HCC) 492.8 J43.9 ATROVENT HFA 17 MCG/ACT Inhalation Aero Soln inhalation budesonide-formoterol fumarate (SYMBICORT) 160-4.5 MCG/ACT Inhalation Aerosol levalbuterol HFA (XOPENEX) 45 MCG/ACT Inhalation Aerosol Plan Lots of water Medication as directed Call if symptoms persist Author: SOHAIL Orozco 03/25/2019 16:03 documented in this encounter Plan of Treatment Health Maintenance Due Date Last Done Comments MEDICARE ANNUAL WELLNESS 1940 VISIT ZOSTER IMMUNIZATION SERIES 1991 (1 of 2) INFLUENZA VACCINE (#1) 2019 05/09/2018, 05/09/2017, 05/20/2016, Additional history exists DEPRESSION SCREENING 05/27/2019 05/27/2018 FALL RISK ASSESSMENT 05/27/2019 05/27/2018, 05/27/2018 OSTEOPOROSIS SCREENING 10/20/2026 10/20/2016 (Declined) PNEUMOCOCCAL 65+YRS Completed 05/24/2015, 04/21/2014, 08/07/2008 HPV IMMUNIZATION SERIES Aged Out No longer eligible based on patient's age to complete this topic MENINGOCOCCAL VACCINE IMM Aged Out No longer eligible based on patient's age to complete this topic documented as of this encounter Goals Goal Patient Goal Associated Recent Patient-Stated? Author Type Problems Progress Smoking COPD No Jessica Hanna FNP Note: This is an individualized treatment (COPD) goal for Lili Sanchez: Quit smoking immediately! Your provider has information and resources that may help you to quit. Keep immunizations current Lifestyle No Mert Jacob MD Note: This is an individualized lifestyle goal for Lili Sanchez: Please be sure to keep up-to-date on recommended immunizations. For example, this would include a yearly influenza vaccine. Immunization status can be seen by looking at the Health Maintenance sections of your [facility], Plan of Care, and any After Visit Summaries. Take all prescribed medications as directed Self-management Mert Jacobs MD Note: This is an individualized self-management goal for Lili Sanchez: Please take all prescribed medications as directed. 1. Do not skip doses. If you cannot afford your medications, talk with your doctor. 2. Use a pill reminder system such as a pill box if needed. Your pharmacist can help you with this. 3. Contact your Pharmacy 5 days before your medication runs out. If you cannot take your medications for any reasons, talk with your doctor. 4. Please bring all of your medication bottles and inhalers (or a list of all your medications/inhalers) with you to every visit. Potential barriers to meeting all of your care plan goals will continue to be addressed on an ongoing basis. documented as of this encounter Procedures Procedure Name Priority Date/Time Associated Diagnosis Comments URINE DIP MANUAL Routine 03/25/2019 3:40 PM Lower abdominal pain Results for this (AMB POCT) EDT procedure are in the results section. documented in this encounter Results URINE DIP MANUAL (AMB POCT) (03/25/2019 3:40 PM EDT) URINE GLUCOSE (POCT) Negative Negative mg/dl [facility] POCT URINE BILIRUBIN Small (A) Negative [facility] (POCT) POCT Urine Ketones (POCT) Negative Negative [facility] POCT URINE SPECIFIC 1.025 1.005 - 1.030 [facility] GRAVITY (POCT) POCT URINE BLOOD (POCT) Large (A) Negative [facility] POCT URINE PH (POCT) 5.0 5.0 - 8.0 [facility] POCT URINE PROTEIN (POCT) 300 (A) Negative mg/dl [facility] POCT URINE UROBILINOGEN 1.0 0.2 - 1.0 mg/dl [facility] (POCT) POCT URINE NITRITES Positive (A) Negative [facility] (POCT) POCT URINE LEUKOCYTES Moderate (A) Negative [facility] (POCT) Cells/uL POCT Specimen Urine Performing Organization Address City/State/Zipcode Phone Number [facility] [address] [place] [address] documented in this encounter Visit Diagnoses Diagnosis Lower abdominal pain - Primary Abdominal pain, other specified site Pulmonary emphysema, unspecified emphysema type (HCC) documented in this encounter Insurance Payer Benefit Plan / Subscriber ID Effective Dates Phone Address Type Group [facility] xxxxxxxxx 2016-Prese Medicare TODAYS OPTIONS TODAYS OPTIONS nt Advantage Guarantor Name Account Type Relation to Date of Phone Billing Patient Address Lili Sanchez Personal/Family 1940 [phone] [address] [facility] [address] ([address]) [address] [phone] [place], [place] (Work) [id number] documented as of this encounter
[2019-05-04 10:46] VITALS: BP 136/73
--- NOTE | 2019-05-04 12:08 | UC ---
Throat Pain/Nasal Chaitanya HPI - HPI Summary HPI Summary: 78-year-old female with history of COPD presents with 2 separate complaints. Patient's first complaint is for 2 day history of headache, some nasal congestion, sinus pressure, sore throat, increased shortness of breath, and a productive cough for green sputum. Associated with some subjective fever and chills and pleuritic type bilateral lower chest pain with coughing. Patient is chronically on oxygen at 2.5 lpm via [place]. Checks her pulse oximetry at home and states she has been maintaining her pulse ox above 95% on the oxygen. Patient was hospitalized on 01/10/2019 for pneumonia due to Streptococcus pneumoniae and COPD exacerbation. Denies ear pain, dysphagia, palpitations, diaphoresis, weakness, or dizziness. The patient's second complaint is for persistent urinary frequency. States 3 weeks ago she was treated for a urinary tract infection with a 7 day course of ciprofloxacin but has had no resolution in her symptoms. Denies abdominal pain, back or flank pain, nausea, vomiting, dysuria , urgency, hematuria, vaginal discharge, or abnormal vaginal bleeding. - History of Current Complaint Chief Complaint: UCGeneralIllness Stated Complaint: ST/AVENDANO/CONGESTION Time Seen by Provider: 05/04/19 11:47 Hx Obtained From: Patient Hx Last Menstrual Period: n/a Pain Intensity: 6 - Allergies/Home Medications Allergies/Adverse Reactions: Allergies Allergy/AdvReac Type Severity Reaction Status Date / Time amoxicillin Allergy Swelling Verified 05/04/19 10:47 Of Face,Lips,& Throat sulfamethoxazole Allergy Swelling Verified 05/04/19 10:47 [From Bactrim] Of Face,Lips,& Throat trimethoprim [From Bactrim] Allergy Swelling Verified 05/04/19 10:47 Of Face,Lips,& Throat Home Medications: Home Medications Acetaminophen [Tylenol Extra Strength] 1 tab PO ONCE 05/04/19 [History Confirmed 05/04/19] PMH/Surg Hx/FS Hx/Imm Hx Respiratory History: COPD - Surgical History Surgical History: Yes Surgery Procedure, Year, and Place: Bilateral Inguinal Herniorrhaphy, - Family History Known Family History: Positive: Cardiac Disease, Hypertension, Diabetes - Social History Occupation: Retired Lives: With Family Alcohol Use: None Substance Use Type: None Smoking Status (MU): Former Smoker Type: Cigarettes Amount Used/How Often: 3 CIGS PER DAY Length of Time of Smoking/Using Tobacco: 60 years Have You Smoked in the Last Year: Yes When Did the Patient Quit Smoking/Using Tobacco: August 2018 Household Exposure Type: Cigarettes - Immunization History Most Recent Influenza Vaccination: April 2018 Most Recent Pneumonia Vaccination: 2013 Vaccination Up to Date: Yes Review of Systems All Other Systems Reviewed And Are Negative: Yes Constitutional: Positive: Fever - Subjective, Chills Skin: Negative: Rash Eyes: Negative: Drainage, Eye Redness ENT: Positive: Sore Throat, Nasal Discharge, Sinus Congestion, Sinus Pain/ Tenderness. Negative: Ear Ache Respiratory: Positive: Shortness Of Breath, Cough Cardiovascular: Negative: Palpitations Gastrointestinal: Negative: Abdominal Pain, Vomiting, Diarrhea, Nausea Genitourinary: Positive: Frequency. Negative: Dysuria, Hematuria, Urgency, Vaginal/Penile Discharge, Abnormal Bleeding Musculoskeletal: Positive: Negative Neurological: Positive: Headache Is Patient Immunocompromised?: No Physical Exam - Summary Physical Exam Summary: GENERAL APPEARANCE: Alert and cooperative chonically ill appearing older adult female who appears to be in no acute distress. EYES: Conjunctiva clear. No drainage. EARS: External auditory canals and tympanic membranes clear, hearing grossly intact. NOSE: Moderate nasal congestion. Maxillary sinus tenderness. THROAT: Pharyngeal erythema with cobblestoning. No tonsilar inflammation, swelling, exudate, or lesions. Uvula midline. NECK: Neck supple, non-tender without lymphadenopathy. CARDIAC: Normal S1 and S2. No S3, S4 or murmurs. Rhythm is regular. There is no peripheral edema, cyanosis or pallor. Extremities are warm and well perfused. Capillary refill is less than 2 seconds. Peripheral pulses intact. LUNGS: Bilateral mild wheezing. No rales or rhonchi noted. Bronchospastic cough. ABDOMEN: Positive bowel sounds. Soft, nondistended, nontender. No guarding or rebound. No masses or hepatosplenomegally. No CVA tenderness. MUSKULOSKELETAL: ROM intact to all extremities. No joint erythema or tenderness. Normal muscular development. Normal gait. SKIN: Skin normal color, texture and turgor with no lesions or eruptions. Triage Information Reviewed: Yes Vital Signs: Initial Vital Signs Temp 97.3 F 05/04/19 10:41 Pulse 72 05/04/19 10:41 Resp 20 05/04/19 10:41 BP 136/73 05/04/19 10:41 Pulse Ox 97 05/04/19 10:41 Vital Signs Reviewed: Yes Throat Pain/Nasal Course/Dx - Course Course Of Treatment: 78-year-old female with history of COPD presents with 2 separate complaints. Patient's first complaint is for 2 day history of headache, some nasal congestion, sinus pressure, sore throat, increased shortness of breath, and a productive cough for green sputum. Associated with some subjective fever and chills and pleuritic type bilateral lower chest pain with coughing. Patient is chronically on oxygen at 2.5 lpm via [place]. Checks her pulse oximetry at home and states she has been maintaining her pulse ox above 95% on the oxygen. Patient was hospitalized on 01/10/2019 for pneumonia due to Streptococcus pneumoniae and COPD exacerbation. Denies ear pain, dysphagia, palpitations, diaphoresis, weakness, or dizziness. The patient's second complaint is for persistent urinary frequency. States 3 weeks ago she was treated for a urinary tract infection with a 7 day course of ciprofloxacin but has had no resolution in her symptoms. Denies abdominal pain, back or flank pain, nausea, vomiting, dysuria , urgency, hematuria, vaginal discharge, or abnormal vaginal bleeding. Afebrile. Vital signs stable. Patient had moderate nasal congestion, maxillary sinus tenderness, pharyngeal erythema with cobblestoning, no tonsillar swelling or exudate, no cervical lymphadenopathy, bilateral wheezes without rales or rhonchi noted, bronchospastic cough, soft nontender abdomen, no CVA tenderness, and otherwise unremarkable exam. [id number] urinalysis was performed and was normal. Discussed with patient that her symptoms were likely from a viral upper respiratory infection however with her history of COPD , recent pneumonia, as well as recent antibiotic use I could not fully rule out a bacterial cause and patient is electing to start antibiotics at this time. She was given a prescription for a worse of azithromycin, prednisone 50 mg daily 5 days for the shortness of breath and wheezing, fluticasone nasal spray , as well as symptomatic treatment for a URI. She is to follow-up with her primary care provider in 3 days for recheck of her symptoms. Anticipatory guidance and warning symptoms require immediate evaluation in the emergency room reviewed with the patient. Verbalizes understanding and agrees with plan of care. - Differential Dx/Diagnosis Differential Diagnosis/HQI/PQRI: Sinusitis, URI, Other - COPD exacerbation, pneumonia Provider Diagnosis: URI with cough and congestion, COPD exacerbation Discharge ED - Sign-Out/Discharge Documenting (check all that apply): Patient Departure All imaging exams completed and their final reports reviewed: No Studies - Discharge Plan Condition: Stable Disposition: HOME Prescriptions: Azithromyxin AKILAH (NF) [Z-Akilah (Zithromax) 250 mg tabs #6] 2 tab PO .TODAY, THEN 1 DAILY #6 tab Fluticasone NASAL SPRAY 50MCG* [Flonase NASAL SPRAY 50MCG*] 2 spray BOTH NARES DAILY #1 btl predniSONE TAB* [Deltasone TAB*] 50 mg PO DAILY #5 tab Patient Education Materials: Upper Respiratory Infection (ED), COPD (Chronic Obstructive Pulmonary Disease) (ED) Referrals: Mert Jacob MD [Primary Care Provider] - 3 Days Additional Instructions: Your history and exam are consistent with an upper respiratory infection with exacerbation of COPD. Your symptoms are likely from a viral infection however with your history of COPD, recent antibiotic use, and past history of pneumonia we will start you on an antibiotic to treat for possible bacterial infection. Start azithromycin 2 tabs today then 1 tab a day for the next 4 days. Start prednisone 50 mg 1 tab daily for 5 days to help with the shortness of breath and wheezing. Continue to use your inhalers as directed. Use a saline rinse kit such as Neti Pot or NeilMed at least twice a day to help thin secretions and promote drainage of the sinuses. Use fluticasone (Flonase) nasal spray 2 sprays each nostril once daily. Take over the counter acetaminophen (Tylenol) or ibuprofen (Advil, Motrin) according to directions as needed for pain or fever. Use salt water gargles several times a day if you have a sore throat. You may also use Chloraseptic spray or Cepacol lonzenges according to directions which contain a numbing medication and can provide some temporary relief from your sore throat. Follow up with your primary care provider in 3 days for a recheck of your symptoms. Call today to schedule an appointment. Seek immediate medical attention in the emergency room if you have fever greater than 100.5 F despite taking acetaminophen or ibuprofen, have worsening or persistent chest pain, increased difficulty breathing, are unable to swallow , or have any worsening of symptoms. - Billing Disposition and Condition Condition: STABLE Disposition: Home
== END 2019-05-04 12:33 | disposition home or self-care (01) ==
LOC: UCCORT 10:19
DX: J06.9 Acute upper respiratory infection, unspecified (principal); R05 Cough; R09.81 Nasal congestion; J44.1 Chronic obstructive pulmonary disease with (acute) exacerbation; Z87.891 Personal history of nicotine dependence; Z88.0 Allergy status to penicillin; Z88.1 Allergy status to other antibiotic agents
CPT/HCPCS: 81003; 99212; G0463

== ENCOUNTER 2019-08-05 15:53 | Emergency (ER) | payer MEDICARE ==
[2019-08-05 16:25] VITALS: BP 117/69
--- NOTE | 2019-08-05 17:19 | UC ---
Respiratory Complaint HPI - HPI Summary HPI Summary: 78-year-old woman comes in with a chief complaint of headache sinus pressure cough chest congestion and yellow sputum shortness of breath. Patient has COPD and she is oxygen dependent. Symptoms started 3-4 days ago. Breathing treatments to help with the breathing. Her oxygen also gutted with breathing. She's had chills no fevers measured. She had a pneumonia in January 2019. Patient also has a headache. Also has bilateral mild pedal edema which the patient reports is actually improved from her normal amount of edema. - History of Current Complaint Chief Complaint: UCGeneralIllness Stated Complaint: MIGRAINE, SORE THROAT, SINUS COMPLAINT, EAR PAIN Time Seen by Provider: 08/05/19 16:57 Hx Last Menstrual Period: n/a Pain Intensity: 8 - Allergies/Home Medications Allergies/Adverse Reactions: Allergies Allergy/AdvReac Type Severity Reaction Status Date / Time amoxicillin Allergy Swelling Verified 08/05/19 16:14 Of Face,Lips,& Throat sulfamethoxazole Allergy Swelling Verified 08/05/19 16:14 [From Bactrim] Of Face,Lips,& Throat trimethoprim [From Bactrim] Allergy Swelling Verified 08/05/19 16:14 Of Face,Lips,& Throat Home Medications: Home Medications GuaiFENesin DM 100 mg/10 mg [Robitussin DM 100 mg/10 mg in 5 ml] 10 ml PO Q6H PRN 08/05/19 [History Confirmed 08/05/19] PMH/Surg Hx/FS Hx/Imm Hx Previously Healthy: Yes Respiratory History: COPD - Surgical History Surgical History: Yes Surgery Procedure, Year, and Place: Bilateral Inguinal Herniorrhaphy, - Family History Known Family History: Positive: Cardiac Disease, Hypertension, Diabetes - Social History Alcohol Use: None Substance Use Type: None Smoking Status (MU): Former Smoker Type: Cigarettes Amount Used/How Often: 3 CIGS PER DAY Length of Time of Smoking/Using Tobacco: 60 years Have You Smoked in the Last Year: Yes When Did the Patient Quit Smoking/Using Tobacco: August 2018 Household Exposure Type: Cigarettes - Immunization History Most Recent Influenza Vaccination: April 2018 Most Recent Pneumonia Vaccination: 2013 Vaccination Up to Date: Yes Review of Systems All Other Systems Reviewed And Are Negative: Yes Constitutional: Positive: Other - SEE HPI Skin: Positive: Negative Eyes: Positive: Negative ENT: Positive: Sore Throat, Ear Ache, Nasal Discharge, Sinus Congestion, Sinus Pain/Tenderness Respiratory: Positive: Shortness Of Breath, Cough, Other - SEE HPI Cardiovascular: Positive: Negative Gastrointestinal: Positive: Negative Motor: Positive: Negative Neurovascular: Positive: Negative Musculoskeletal: Positive: Edema - MILD B/L Neurological: Positive: Headache Psychological: Positive: Negative Is Patient Immunocompromised?: No Physical Exam Triage Information Reviewed: Yes Appearance: No Pain Distress, Well-Nourished, Ill-Appearing - MILD Vital Signs: Initial Vital Signs Temp 97.4 F 08/05/19 16:19 Pulse 72 08/05/19 16:19 Resp 18 08/05/19 16:19 BP 117/69 08/05/19 16:19 Pulse Ox 100 08/05/19 16:19 Vital Signs Reviewed: Yes Eye Exam: Normal Eyes: Positive: Conjunctiva Clear ENT: Positive: Pharyngeal erythema, Nasal congestion, Nasal drainage, TMs normal Neck: Positive: Supple Respiratory: Positive: No respiratory distress, Rhonchi - B/L, Wheezing - B/L Cardiovascular: Positive: RRR Musculoskeletal: Positive: Strength Intact, ROM Intact, Edema @ - TRACE B/L ANKLES Neurological: Positive: Alert Psychological: Positive: Age Appropriate Behavior Skin Exam: Normal Respiratory Course/Dx - Course Course Of Treatment: Bone Drier Operator: Jona Salvador ([id number]) Rebar Fabricator: DANA (DANA) Report Date: 08/05/2019 18:14:00 Report Status: Final Start of Report Content Patient Name: LETI PAUL Medical Record#: [id number] Ordering Physician: Tyrone Caruso MD Acct.#: [id number] : Age: 78 Sex: F Location: [facility] Exam Date: 08/05/191706 ADM Status: REG ER Order Information: CHEST PA LAT 2 VWS Accession Number: [id number] CPT: 31610 INDICATION: Cough and congestion COMPARISON: Chest x-ray January 10, 2019 TECHNIQUE: PA and lateral views of the chest were obtained. FINDINGS: The heart and mediastinum are normal in size and contour. Again seen is coarse calcification overlying the arch of the aorta. The lungs are grossly clear. There is no evidence of large pleural effusion. Visualized bones are normal for the patient's age. There is no radiographic evidence of free air beneath the diaphragm IMPRESSION: No radiographic evidence of acute cardiopulmonary disease. <Electronically signed by Jona Salvador MD in OV> 08/05/191809 Dictated By : Jona Salvador MD Dictated Date/Time: 08/05/191808 Transcribed Date/Time: 08/05 Copy to: CC:Mert Jacob MD; Tyrone Caruso MD Imaging - [facility] Imaging - [place] [facility] [address] [address] ph ([phone]) ph ([phone]) ph ([phone]) End of Report Content I discussed the x-ray with the patient and her daughter. We discussed viral versus bacterial infections and the patient's risk factors with severe COPD being dependent on oxygen. At this time the patient prefers to be on antibiotics. And treating with Ceftin ear and days azithromycin. Also treating with a prednisone taper. Patient sees the claim analyst Dr. Rockwell and will be following up with her. Patient is to go the emergency department if worse or not improving. - Differential Dx/Diagnosis Provider Diagnosis: Bronchitis, COPD exacerbation Discharge ED - Sign-Out/Discharge Documenting (check all that apply): Patient Departure All imaging exams completed and their final reports reviewed: Yes - Discharge Plan Condition: Stable Disposition: HOME Prescriptions: Azithromyxin UCHE (NF) [Z-Uche (Zithromax) 250 mg tabs #6] 2 tab PO .TODAY, THEN 1 DAILY #6 tab Cefdinir [Cefdinir 300 MG CAP] 300 mg PO BID #20 cap predniSONE TAB* [Deltasone 10 MG TAB*] 10 mg PO DAILY #16 tab Patient Education Materials: Acute Bronchitis (ED), COPD (Chronic Obstructive Pulmonary Disease) (ED) Referrals: Mert Jacob MD [Primary Care Provider] - Elaine Rockwell MD [Medical Doctor] - Additional Instructions: FOLLOW UP WITH YOUR LEAN COACH, DR ROCKWELL. GO TO THE EMERGENCY DEPARTMENT IF NOT IMPROVING OR WORSE; SHORTNESS OF BREATH, YOU FEEL ILL OR ANY QUESTIONS OR CONCERNS. - Billing Disposition and Condition Condition: STABLE Disposition: Home
[2019-08-05] MEDS ORDERED: predniSONE TAB* 20 MG PO ONE (17:58)
== END 2019-08-05 18:49 | disposition home or self-care (01) ==
LOC: UCCORT 15:53
DX: J44.1 Chronic obstructive pulmonary disease with (acute) exacerbation (principal); R60.0 Localized edema; Z99.81 Dependence on supplemental oxygen; Z88.0 Allergy status to penicillin; Z88.2 Allergy status to sulfonamides; Z88.1 Allergy status to other antibiotic agents; Z87.891 Personal history of nicotine dependence
CPT/HCPCS: 71046; 87651; 99212; G0463; J7512

== ENCOUNTER 2019-09-29 11:36 | Emergency (ER) | payer SELFPAY ==
--- NOTE | 2019-09-29 14:11 | UC ---
Ear Complaint HPI - HPI Summary HPI Summary: 79-year-old. Present with daughter and granddaughter for complaints of right ear pain for the last couple days. Notes decreased hearing and believes it is clogged. Denies drainage from the ear. Denies symptoms of left ear. Patient states that she tried an [id number] wax removal But states nothing came out. Also notes that she tried warm water and peroxide which did not help either. Denies fever and chills. Does note recent cold symptoms that are now resolving. - History of Current Complaint Chief Complaint: UCEar Stated Complaint: EAR COMPLAINT Hx Obtained From: Patient Hx Last Menstrual Period: n/a Pain Intensity: 8 Pain Scale Used: 0-10 Numeric - Allergies/Home Medications Allergies/Adverse Reactions: Allergies Allergy/AdvReac Type Severity Reaction Status Date / Time amoxicillin Allergy Swelling Verified 09/29/19 12:37 Of Face,Lips,& Throat sulfamethoxazole Allergy Swelling Verified 09/29/19 12:37 [From Bactrim] Of Face,Lips,& Throat trimethoprim [From Bactrim] Allergy Swelling Verified 09/29/19 12:37 Of Face,Lips,& Throat Home Medications: Home Medications Albuterol HFA INHALER* [Ventolin HFA Inhaler*] 1 puff INH Q4H PRN #1 mdi [Rx Confirmed 09/29/19] Albuterol/Ipratropium NEB.DENY* [Duoneb (Albuterol 2.5 MG/Ipratropium 0.5 MG)] 1 neb INH Q4H PRN #100 neb.soln 01/15/19 [Rx Confirmed 09/29/19] Budesonide/Formote 160/4.5(NF) [Symbicort 160/4.5 (NF)] 2 puff INH BID #1 mdi [Rx Confirmed 09/29/19] Acetaminophen [Tylenol Extra Strength] 1,000 tab PO ONCE 05/04/19 [History Confirmed 09/29/19] Neomyc/Polym/HC 1% OTIC SUSP* [Cortisporin Otic Susp 1%*] 4 drop RIGHT EAR TID 7 Days #1 btl 09/29/19 [Rx] PMH/Surg Hx/FS Hx/Imm Hx Respiratory History: COPD - Surgical History Surgical History: Yes Surgery Procedure, Year, and Place: Bilateral Inguinal Herniorrhaphy, - Family History Known Family History: Positive: Cardiac Disease, Hypertension, Diabetes - Social History Alcohol Use: None Substance Use Type: None Smoking Status (MU): Former Smoker Type: Cigarettes Amount Used/How Often: 3 CIGS PER DAY Length of Time of Smoking/Using Tobacco: 60 years Have You Smoked in the Last Year: No When Did the Patient Quit Smoking/Using Tobacco: August 2018 Household Exposure Type: Cigarettes - Immunization History Most Recent Influenza Vaccination: April 2018 Most Recent Pneumonia Vaccination: 2013 Vaccination Up to Date: Yes Review of Systems All Other Systems Reviewed And Are Negative: Yes Constitutional: Positive: Negative ENT: Positive: Ear Ache - right, Sinus Congestion Respiratory: Positive: Negative Cardiovascular: Positive: Negative Neurological/Mental Status: Positive: Negative Physical Exam - Summary Physical Exam Summary: Vital Signs Reviewed: Yes A+Ox3, no distress Eyes: Conjunctiva Clear ENT: Hearing grossly normal, unable to visualize TMs due to bilateral cerumen impaction, + mild tenderness with manipulation of the right pinna, moist, uvula midline, no exudate, no erythema Neck: Positive: Supple Respiratory: Positive: No respiratory distress, No accessory muscle use + diffuse wheezing throughout lung suero Cardiovascular: RRR nl s1, s2 no m/r Musculoskeletal Exam: TAYLOR x 4 without difficulty Neurological: Positive: Alert Psychological: Positive: age appropriate behavior Skin: Positive: no rash, no ecchymosis Vital Signs: Initial Vital Signs Temp 96.2 F 09/29/19 12:39 Pulse 81 09/29/19 12:39 Resp 20 09/29/19 12:39 BP 143/86 09/29/19 12:39 Pulse Ox 94 09/29/19 12:39 Ear Complaint Course/Dx - Course Course Of Treatment: Liquid Colace placed in both ears before bilateral ear irrigation was performed. Large amount of cerumen was removed via irrigation. Left EAC and TM clear without signs of infection. The right EAC revealed mild edema and erythema with normal TM. I treated the patient with antibiotic ear drops in the right ear for otitis externa secondary to cerumen impaction. Instructed to follow up with PCP if symptoms persist. Patient voiced understanding and agreed with the treatment plan. - Differential Dx/Diagnosis Provider Diagnosis: Impacted cerumen, bilateral, Otitis externa of right ear Discharge ED - Sign-Out/Discharge Documenting (check all that apply): Patient Departure All imaging exams completed and their final reports reviewed: No Studies - Discharge Plan Condition: Stable Disposition: HOME Prescriptions: Neomyc/Polym/HC 1% OTIC SUSP* [Cortisporin Otic Susp 1%*] 4 drop RIGHT EAR TID 7 Days #1 btl Patient Education Materials: Otitis Externa (ED), Cerumen Impaction (ED) Referrals: Mert Jacob MD [Primary Care Provider] - If Needed Additional Instructions: You had large amounts of wax removed from both ears today. Place 4 antibiotic drops in the right ear 3 times daily for 7 days for treatment of your outer ear infection. Do not place any objects in the ear, including Q tips. Follow up with your primary care provider if pain and symptoms do not resolve within 7 days. - Billing Disposition and Condition Condition: STABLE Disposition: Home
[2019-09-29] MEDS ORDERED: Docusate LIQ* 100 MG/10 ML UDC OTIC ONE (14:13)
[2019-09-29 14:22] VITALS: BP 143/86
== END 2019-09-29 15:43 | disposition home or self-care (01) ==
LOC: UCEAST 11:36
DX: H61.23 Impacted cerumen, bilateral (principal); H60.91 Unspecified otitis externa, right ear; J44.9 Chronic obstructive pulmonary disease, unspecified; Z88.0 Allergy status to penicillin; Z88.2 Allergy status to sulfonamides; Z87.891 Personal history of nicotine dependence
CPT/HCPCS: 99213; A9270-GY; G0463

== ENCOUNTER 2019-11-19 11:37 | Emergency (ER) | payer MEDICARE ==
--- OUTSIDE RECORDS SUMMARY | 2019-11-19 12:09 | XMS REPORT | Continuity of Care Document ---
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 Problems Description No Information Available Social History Type Date Description Comments Sex Unknown Tobacco Use Start: Unknown End: Former Cigarette Smoker 1 64 Yrs Unknown 1/2 Packs Daily Smoking Status Reviewed: 10/13/19 Former Cigarette Smoker 1 64 Yrs 1/2 Packs Daily ETOH Use Never used alcohol Tobacco Use Start: Unknown End: Patient is a former smoker Unknown Recreational Drug Use Never Used Drugs Exercise Type/Frequency Exercises rarely Allergies, Adverse Reactions, Alerts Active Allergies Reaction Severity Comments Date Amoxicillin 01/21/2019 Bactrim Itchy throat Severe 02/16/2019 Medications Active Medications SIG Qnty Indications Ordering Date Provider Spiriva Respimat 2 puffs every in 1units Francia 10/13/2019 the morning CAT Max 2.5mcg/Act Aerosol Ipratropium [place] 1 vial in 150ml J44.9 Elaine Child, 05/20/2019 0.02% nebulizer every MD Solution 4-6 hours as needed Oxygen Pt doesnot want to 1units R09.02 Elaine Child, 05/20/2019 [facility] use portable MD concentrator, pls d/c and provide with regular tanks Oxy Mask PLs provide pt R09.02 Elaine Child, 05/20/2019 with oxymask to be MD used with her o2 source Nystatin 5cc, swish and 60ml J44.9 Elaine Child, 05/20/2019 [id number] spit, twice daily MD Suspension Oxygen please use o2 at 1units J44.9 Elainetodd Lugoali, 02/16/2019 Misc 2l/min during MD exertion, pls provide pt with portable o2 concentrator Levalbuterol HCL 1 unit 60units J44.1 Elaine Child, 01/21/2019 nebulization every MD 1.25mg/0.5ML Nebulizer 12 hours as needed Nebulizer 1 unit 1units J44.1 Elaine Child, 01/21/2019 Kit/Tubing/Mouthpiece nebulization every MD 4- 6 hours as Kit needed Nebulizer 1 unit 1units J44.1 Elaine Child, 01/21/2019 Device nebulization with albuterol every 6 hours and as needed Cyclobenzaprine HCL one po tid prn 45tabs Justin Brooke 04/20/2009 10mg spasm Sandeep Handy Tablets Ultram 1-2 po qid prn 60tabs Justin rBooke 04/20/2009 50mg Tablets Sandeep Handy Symbicort inhale two puffs 1units Francia 160-4.5mcg/Act by mouth twice a CAT Max Aerosol day Albuterol Sulfate HFA inhale one puff by 25.5gm Francia mouth every 4 CAT Max 108(90Base) mcg/Act hours as needed Aerosol for wheezing - don't use if you just had nebulizer treatment Ipratropium [place] 1 vial in Unknown 0.02% nebulizer every Solution 4-6 hours as needed History Medications Symbicort inhale 1 puff 10.200gm Elaine Child, 07/14/2019 - 80-4.5mcg/Act twice daily; 07/14/2019 Aerosol rinse mouth after use Immunizations Description No Information Available Vital Signs Date Vital Result Comment 10/13/2019 8:45am Height 66 inches 5'6" Weight 144.00 lb Heart Rate 75 /min BP Systolic 142 mmHg BP Diastolic 82 mmHg O2 % BldC Oximetry 98 % BMI (Body Mass Index) 23.2 kg/m2 05/20/2019 9:06am Height 66 inches 5'6" Weight 145.00 lb Heart Rate 76 /min BP Systolic Sitting 130 mmHg BP Diastolic Sitting 84 mmHg O2 % BldC Oximetry 96 % BMI (Body Mass Index) 23.4 kg/m2 Results Description No Information Available Procedures Description No Information Available Medical Devices Description No Information Available Encounters Type Date Location Provider Dx Diagnosis Office Visit 10/13/2019 [facility] Francia J44.9 Chronic 9:00a [facility] obstructive Resident Hall Director pulmonary disease, unspecified R09.02 Hypoxemia Z87.891 Personal history of nicotine dependence Z12.2 Encntr screen for malignant neoplasm of respiratory organs Office Visit 05/20/2019 9:15a [facility] Elaine J44.9 Chronic [facility]z obstructive Resident Hall Director pulmonary disease, unspecified R09.02 Hypoxemia Assessments Date Code Description Provider 10/13/2019 J44.9 Chronic obstructive pulmonary disease, Francia Max NP unspecified 10/13/2019 R09.02 Hypoxemia Francia Max NP 10/13/2019 Z87.891 Personal history of nicotine dependence Francia Max NP 10/13/2019 Z12.2 Encounter for screening for malignant Francia Max NP neoplasm of respiratory organs 05/20/2019 J44.9 Chronic obstructive pulmonary disease, Elaine Child MD unspecified 05/20/2019 R09.02 Hypoxemia Elaine Child MD Plan of Treatment 10/13/2019 - Francia Max NPJ44.9 Chronic obstructive pulmonary disease, unspecifiedFollow up:3 months, Pt prefers testing on same day as OVRecommendations:Try using the Spiriva Respimat. Remember to rinse your mouth out after use. Call us if you need moresamples and we will provide if we have in stock.R09.02 [id number] Personal history of nicotine [id number] Encounter for screening for malignant neoplasm of respiratory organsNew Xrays: CT Lung Screening-Low Dose, Ordered: 10/13/19 Functional Status Description No Information Available Mental Status Description No Information Available Referrals Description No Information Available
--- OUTSIDE RECORDS SUMMARY | 2019-11-19 12:09 | XMS REPORT | Continuity of Care Document ---
:1940 External Reference #:[id number] Author Name Francia Max NP Address [address], [address] [place] [address] Care Team Providers Name Role Phone Mert Jacob MD - Family Medicine Care Team Information Quality Engineer Medical Device [phone] Problems Description No Information Available Social History [...] Medications SIG Qnty Indications Ordering Date Provider Ipratropium [place] 1 vial in 150ml J44.9 Elaine Child, 05/20/2019 0.02% nebulizer every MD Solution 4-6 hours as needed Oxygen Pt doesnot want to 1units R09.02 Elaine Child, 05/20/2019 Misc use portable MD concentrator, pls d/c and provide with regular tanks Oxy Mask PLs provide pt R09.02 Elaine Child, 05/20/2019 with oxymask to be MD used with her o2 source Nystatin 5cc, swish and 60ml J44.9 Elaine Child, 05/20/2019 [id number]/ML spit, twice daily MD Suspension Oxygen please use o2 at 1units J44.9 Elaine Child, 02/16/2019 Misc 2l/min during MD exertion, pls provide pt with portable o2 concentrator Levalbuterol HCL 1 unit 60units J44.1 Elaine Child, 01/21/2019 nebulization every MD 1.25mg/0.5ML Nebulizer 12 hours as needed Nebulizer 1 unit 1units J44.1 Elaine Child, 01/21/2019 Kit/Tubing/Mouthpiece nebulization every MD 4- 6 hours as Kit needed Nebulizer 1 unit 1units J44.1 Elaine Mateusz, 01/21/2019 Device nebulization with albuterol every 6 hours and as needed Cyclobenzaprine HCL one po tid prn 45tabs Justin Brooke 04/20/2009 10mg spasm Sandeep Handy Tablets Ultram 1-2 po qid prn 60tabs Justin Brooke 04/20/2009 50mg Tablets Sandeep Handy Symbicort inhale two puffs 6gm Francia 160-4.5mcg/Act by mouth twice a CAT Max Aerosol day Albuterol Sulfate HFA inhale one puff by 25.5gm Francia mouth every 4 Mansoor, QUALITY CONTROL MICROBIOLOGIST 108(90Base) mcg/Act hours as needed Aerosol for wheezing - don't use if you just had nebulizer treatment Ipratropium [place] 1 vial in Unknown 0.02% nebulizer every Solution 4-6 hours as needed History Medications Symbicort inhale 1 puff 10.200gm Elaine Mateusz, 07/14/2019 - 80-4.5mcg/Act twice daily; 07/14/2019 Aerosol [...] Diagnosis Office Visit 10/13/2019 Pulmonology And Francia Hooper44.9 Chronic 9:00a [facility] obstructive Registration Rep pulmonary disease, unspecified R09.02 Hypoxemia Z87.891 Personal history of nicotine dependence Z12.2 Encntr screen for malignant neoplasm of respiratory organs Office Visit 05/20/2019 9:15a Pulmonology And Elaine Hooper44.9 Chronic [facility] obstructive Registration Rep pulmonary disease, unspecified R09.02 Hypoxemia Assessments Date Code Description Provider 10/13/2019 J44.9 Chronic obstructive pulmonary disease, Francia Max NP unspecified 10/13/2019 R09.02 Hypoxemia Francia Max NP 10/13/2019 Z87.891 Personal history of nicotine dependence Francia Max NP 10/13/2019 Z12.2 Encounter for screening for malignant Francia Max NP neoplasm of respiratory organs 05/20/2019 J44.Yi Chronic obstructive pulmonary disease, Elaine Child MD [...] will provide if we have in stock.R09.02 [id number] Personal history of nicotine xibfrvxeneK36.2 Encounter for screening for malignant neoplasm of respiratory organsNew Xrays: CT Lung Screening-Low Dose, Ordered: 10/13/19 Functional Status Description No Information Available Mental Status Description No Information Available Referrals Description No Information Available
[2019-11-19 12:16] VITALS: BP 149/67
[2019-11-19] MEDS ORDERED: Ketorolac INJ* 30 MG/ML 1 ML VIAL IM ONE (12:43)
--- NOTE | 2019-11-19 12:59 | UC ---
Back Pain HPI - HPI Summary HPI Summary: Pt presents with c/o sudden onset of left mid back pain that radiates to left lower chest. Pt states pain began on 11/14/19 after she had reached down to tie her shoe and felt a "pop" in her left mid lateral back. Pt state she gets "waves of pain" that she states "make her catch her breath" due to pain. Denies chest pain, worsening difficulty breathing or hx of cvd. - History of Current Complaint Chief Complaint: UCBackPain Stated Complaint: BACK PAIN Time Seen by Provider: 11/19/19 12:18 Hx Obtained From: Patient Hx Last Menstrual Period: n/a ?: No Onset/Duration: Sudden Onset, Lasting Days, Still Present, Worse Since - onet Timing: Constant, Intermittent - intermittent episodes of worsening pain Severity Initially: Mild Severity Currently: Moderate Pain Intensity: 6 Back Pain: Is Discrete @ - left midlateral back, Radiates To - right mid chest Character: Dull, Aching, Throbbing, Spasmodic Aggravating Factor(s): Movement, Lifting, Bending Alleviating Factor(s): Nothing Associated Signs And Symptoms: Positive: Negative - Risk Factors AAA Risk Factors: Negative TAD Risk Factors: Negative Cauda Equina Risk Factors: Negative Epidural Abscess Risk Factors: Negative - Allergies/Home Medications Allergies/Adverse Reactions: Allergies Allergy/AdvReac Type Severity Reaction Status Date / Time amoxicillin Allergy Swelling Verified 11/19/19 12:09 Of Face,Lips,& Throat sulfamethoxazole Allergy Swelling Verified 11/19/19 12:09 [From Bactrim] Of Face,Lips,& Throat trimethoprim [From Bactrim] Allergy Swelling Verified 11/19/19 12:09 Of Face,Lips,& Throat Home Medications: Home Medications Albuterol HFA INHALER* [Ventolin HFA Inhaler*] 1 puff INH Q4H PRN #1 mdi [Rx Confirmed 11/19/19] Albuterol/Ipratropium NEB.DENY* [Duoneb (Albuterol 2.5 MG/Ipratropium 0.5 MG)] 1 neb INH Q4H PRN #100 neb.soln 01/15/19 [Rx Confirmed 11/19/19] Budesonide/Formote 160/4.5(NF) [Symbicort 160/4.5 (NF)] 2 puff INH BID #1 mdi [Rx Confirmed 11/19/19] Acetaminophen [Tylenol Extra Strength] 1,000 tab PO Q6H PRN 05/04/19 [History Confirmed 11/19/19] Cyclobenzaprine TAB* [Flexeril 10 MG TAB*] 10 mg PO TID PRN #12 tab 11/19/19 [Rx ] Ibuprofen TAB* [Advil TAB*] 400 mg PO Q6H PRN 11/19/19 [History Confirmed ] PMH/Surg Hx/FS Hx/Imm Hx Previously Healthy: Yes Respiratory History: COPD - Surgical History Surgical History: Yes Surgery Procedure, Year, and Place: Bilateral Inguinal Herniorrhaphy, - Family History Known Family History: Positive: Cardiac Disease, Hypertension, Diabetes - Social History Occupation: Retired Lives: With Family Alcohol Use: None Substance Use Type: None Smoking Status (MU): Former Smoker Type: Cigarettes Amount Used/How Often: 3 CIGS PER DAY Length of Time of Smoking/Using Tobacco: 60 years Have You Smoked in the Last Year: No When Did the Patient Quit Smoking/Using Tobacco: August 2018 Household Exposure Type: Cigarettes - Immunization History Most Recent Influenza Vaccination: April 2018 Most Recent Pneumonia Vaccination: 2013 Vaccination Up to Date: Yes Review of Systems All Other Systems Reviewed And Are Negative: Yes Constitutional: Positive: Negative Skin: Positive: Negative Eyes: Positive: Negative ENT: Positive: Negative Respiratory: Positive: Negative Cardiovascular: Positive: Negative Gastrointestinal: Positive: Negative Genitourinary: Positive: Negative Motor: Positive: Decreased ROM - due to pain Neurovascular: Positive: Negative Musculoskeletal: Positive: Arthralgia, Myalgia Neurological/Mental Status: Positive: Negative Psychological: Positive: Negative Is Patient Immunocompromised?: No Physical Exam Triage Information Reviewed: Yes Appearance: Pain Distress Vital Signs: Initial Vital Signs Temp 97.7 F 11/19/19 12:11 Pulse 85 11/19/19 12:11 Resp 20 11/19/19 12:11 BP 149/67 11/19/19 12:11 Pulse Ox 100 11/19/19 12:11 Vital Signs Reviewed: Yes Eye Exam: Normal ENT Exam: Normal ENT: Positive: Hearing grossly normal Neck exam: Normal Respiratory: Positive: Decreased breath sounds, Other: - pt has COPD uses portable O2 /NC Cardiovascular Exam: Normal Musculoskeletal: Positive: Other: - c/o pain with PE at mid lateral back at ~ rib # 6-8. Neurological Exam: Normal Psychological Exam: Normal Skin Exam: Normal Back Pain Course/Dx - Differential Dx/Diagnosis Differential Diagnosis/HQI/PQRI: Strain, Sprain, Other - [place] Provider Diagnosis: Back pain, Muscle spasm of back Discharge ED - Sign-Out/Discharge Documenting (check all that apply): Patient Departure All imaging exams completed and their final reports reviewed: No Studies - Discharge Plan Condition: Stable Disposition: HOME Prescriptions: Cyclobenzaprine TAB* [Flexeril 10 MG TAB*] 10 mg PO TID PRN #12 tab PRN Reason: Pain - Mild Patient Education Materials: Back Pain (ED) Referrals: Mert Jacob MD [Primary Care Provider] - If Needed - Billing Disposition and Condition Condition: STABLE Disposition: Home - Attestation Statements Provider Attestation: This patient was not seen by me. I was available for consult. Chart reviewed. FLEX
== END 2019-11-19 13:10 | disposition home or self-care (01) ==
LOC: UCCORT 11:37
DX: M54.6 Pain in thoracic spine (principal); M62.830 Muscle spasm of back; R07.89 Other chest pain; J44.9 Chronic obstructive pulmonary disease, unspecified; Z99.81 Dependence on supplemental oxygen; Z88.0 Allergy status to penicillin; Z88.2 Allergy status to sulfonamides; Z87.891 Personal history of nicotine dependence
CPT/HCPCS: 96372; 99212; G0463; J1885

== ENCOUNTER 2021-05-18 11:58 | Inpatient (IN) ==
[2021-05-18] MEDS ORDERED: Dexamethasone IV 4 MG/ML VIAL 1 ml VIAL IV SLOW PU ONE (12:12)
[2021-05-18] MEDS ORDERED: Albuterol HFA INHALER 8 gm MDI INH ONE (12:14)
[2021-05-18] MEDS ORDERED: Lactated Ringers 1000 ml BAG 1,000 ML IV ONE (12:14)
[2021-05-18 13:37] LABS: Venous Bicarbonate HCO3 27.3 mmol/L (24-28)
[2021-05-18 13:41] LABS: Hematocrit 44 % (35-47); Hemoglobin 14.6 g/dL (12.0-16.0); Mean Corpuscular HGB Conc 34 g/dL (31-36); Mean Corpuscular Hemoglobin 30 pg (27-31); Mean Corpuscular Volume 89 fL (80-97); Mean Platelet Volume 8.7 fL (7.4-10.4); Platelet Count 234 10^3/uL (150-450); Red Blood Count 4.89 10^6 /uL (3.70-4.87); Red Cell Distribution Width 14 % (10-15); White Blood Count 8.8 10^3/uL (3.5-10.8)
[2021-05-18 13:56] LABS: Influenza A Molecular Negative (Negative); Influenza B Molecular Negative (Negative)
[2021-05-18 13:57] LABS: ALT 13 U/L (7-52); AST 14 U/L (13-39); Albumin 3.5 g/dL (3.2-5.2); Albumin/Globulin Ratio 0.9 (1-3); Alkaline Phosphatase 94 U/L (35-149); Anion Gap 12 mmol/L (2-11); Blood Urea Nitrogen 18 mg/dL (6-24); C Reactive Protein 149.38 mg/L (<8.01); CO2 Carbon Dioxide 26 mmol/L (22-32); Calcium 8.7 mg/dL (8.6-10.3); Chloride 99 mmol/L (101-111); Globulin 3.7 g/dL (2-4); Glucose 139 mg/dL (70-100); Potassium 3.7 mmol/L (3.5-5.0); Sodium 137 mmol/L (135-145); Total Protein 7.2 g/dL (6.4-8.9)
[2021-05-18 14:04] LABS: LDH 264 U/L (140-271)
[2021-05-18 14:06] LABS: ABS Lymphocytes 0.5 10^3/ul (1.0-4.8); ABS Monocytes 0.6 10^3/ul (0-0.8); ABS Neutrophils 7.9 10^3/ul (1.5-7.7); Eosinophil % 0.2 %; Lymphocyte % 5.3 %
[2021-05-18 14:12] LABS: Activated Partial Thrombo Time 29.3 seconds (26.0-38.0); INR 1.12 (0.86-1.15)
[2021-05-18 14:23] LABS: Ferritin 293.3 ng/mL (11-307)
[2021-05-18 15:01] LABS: Troponin I 0.04 ng/mL (<0.03)
[2021-05-18] MEDS ORDERED: Levofloxacin 750 MG IVPREMIX 750 MG/150 ML BAG IVPB ONE (15:11)
[2021-05-18 17:37] LABS: Rapid COVID-19 Molecular Detected (Undetected)
[2021-05-18] MEDS ORDERED: Ondansetron 4 mg VIAL 2 MG/ML 2 ml VIAL IV PRN (19:37)
[2021-05-18] MEDS ORDERED: Remdesivir 100 mg Vial 200 MG in NS 0.9% 250 ml 210 ML IV ONE (19:37)
[2021-05-18] MEDS ORDERED: DOXYcycline 100 MG in NS 0.9% 250 ml 250 ML IVPB SCH (20:00)
[2021-05-18] MEDS ORDERED: Ipratropium HFA INHALER(NF) (ALTERNATIVE = NEBS) INH SCH ×2 (21:00)
[2021-05-18] MEDS: cefTRIAXone 1 gm/50 mL NS BAG 1 GM/50 ML BAG IVPB SCH (22:19)
[2021-05-18] MEDS: Enoxaparin 30 MG/0.3 ML SYR SUBCUT SCH (22:39)
[2021-05-19] MEDS: Mometasone/Formoter 200/5 MDI INH SCH ×3 (05:18→19:17)
[2021-05-19] MEDS: Ipratropium HFA INHALER(NF) (ALTERNATIVE = NEBS) INH SCH ×5 (05:18→19:17)
[2021-05-19 08:06] LABS: Hematocrit 40 % (35-47); Hemoglobin 13.4 g/dL (12.0-16.0); Mean Corpuscular HGB Conc 33 g/dL (31-36); Mean Corpuscular Hemoglobin 30 pg (27-31); Mean Corpuscular Volume 89 fL (80-97); Mean Platelet Volume 8.8 fL (7.4-10.4); Platelet Count 228 10^3/uL (150-450); Red Cell Distribution Width 14 % (10-15); White Blood Count 6.1 10^3/uL (3.5-10.8)
[2021-05-19 08:25] LABS: ALT 11 U/L (7-52); AST 14 U/L (13-39); Albumin 3.2 g/dL (3.2-5.2); Alkaline Phosphatase 80 U/L (35-149); Anion Gap 10 mmol/L (2-11); Blood Urea Nitrogen 18 mg/dL (6-24); C Reactive Protein 123.74 mg/L (<8.01); CO2 Carbon Dioxide 23 mmol/L (22-32); Calcium 8.6 mg/dL (8.6-10.3); Chloride 104 mmol/L (101-111); Globulin 3.3 g/dL (2-4); Glucose 144 mg/dL (70-100); INR 1.19 (0.86-1.15); Magnesium 2.1 mg/dL (1.9-2.7); Potassium 4.1 mmol/L (3.5-5.0); Sodium 137 mmol/L (135-145); Total Protein 6.5 g/dL (6.4-8.9)
[2021-05-19 08:26] LABS: Troponin I 0.03 ng/mL (<0.03)
[2021-05-19] MEDS: Enoxaparin 30 MG/0.3 ML SYR SUBCUT SCH ×2 (10:29→20:56)
[2021-05-19] MEDS: DOXYcycline 100 MG in NS 0.9% 250 ml 250 ML IVPB SCH ×2 (10:29→20:51)
[2021-05-19] MEDS: Albuterol HFA INHALER 8 gm MDI INH PRN ×3 (11:10→19:16)
[2021-05-19] MEDS ORDERED: Iohexol 350 (CONTRAST) 500 ML MDV IV ONE (13:25)
[2021-05-19] MEDS ORDERED: Calcium Carb (TUMS) 500 mg CHEW TAB PO PRN (18:05)
[2021-05-19] MEDS ORDERED: Omeprazole 10 mg CAP (NF) PO SCH (19:00)
[2021-05-19] MEDS: Remdesivir 100 mg Vial 100 MG in NS 0.9% 250 ml 230 ML IV SCH (22:38)
[2021-05-20] MEDS: cefTRIAXone 1 gm/50 mL NS BAG 1 GM/50 ML BAG IVPB SCH (00:41)
[2021-05-20 06:56] LABS: ABS Lymphocytes 0.6 10^3/ul (1.0-4.8); ABS Monocytes 0.8 10^3/ul (0-0.8); ABS Neutrophils 9.1 10^3/ul (1.5-7.7); Hematocrit 39 % (35-47); Hemoglobin 12.9 g/dL (12.0-16.0); Lymphocyte % 5.6 %; Mean Corpuscular HGB Conc 33 g/dL (31-36); Mean Corpuscular Hemoglobin 29 pg (27-31); Mean Corpuscular Volume 89 fL (80-97); Mean Platelet Volume 8.7 fL (7.4-10.4); Platelet Count 264 10^3/uL (150-450); Red Blood Count 4.39 10^6 /uL (3.70-4.87); Red Cell Distribution Width 14 % (10-15); White Blood Count 10.5 10^3/uL (3.5-10.8)
[2021-05-20] MEDS: Albuterol HFA INHALER 8 gm MDI INH PRN ×4 (06:56→19:53)
[2021-05-20] MEDS: Ipratropium HFA INHALER(NF) (ALTERNATIVE = NEBS) INH SCH ×4 (06:58→19:52)
[2021-05-20 07:00] LABS: INR 1.2 (0.86-1.15)
[2021-05-20] MEDS: Mometasone/Formoter 200/5 MDI INH SCH ×2 (07:00→19:52)
[2021-05-20 07:13] LABS: Albumin/Globulin Ratio 0.9 (1-3); Calcium 8.6 mg/dL (8.6-10.3); Globulin 3.2 g/dL (2-4); Potassium 4.2 mmol/L (3.5-5.0); Total Bilirubin 0.3 mg/dL (0.2-1.0); Total Protein 6.2 g/dL (6.4-8.9)
[2021-05-20] MEDS: DOXYcycline 100 MG in NS 0.9% 250 ml 250 ML IVPB SCH ×2 (09:16→20:41)
[2021-05-20] MEDS: Enoxaparin 30 MG/0.3 ML SYR SUBCUT SCH ×2 (09:19→20:41)
[2021-05-20] MEDS ORDERED: Polyethylene Glycol 3350 17 GM PACKET PO PRN (10:16)
[2021-05-20] MEDS ORDERED: Senna TAB 8.6 mg TAB PO PRN (10:16)
[2021-05-20] MEDS ORDERED: Magnesium Hydroxide LIQ 30 ML UDC PO PRN (10:16)
[2021-05-20] MEDS: Magnesium Hydroxide LIQ 30 ML UDC PO SCH ×2 (11:43→20:41)
[2021-05-20] MEDS: methylPREDNISolone SOD 40 mg/ml 1 ml VIAL IV SCH (20:41)
[2021-05-20] MEDS: Remdesivir 100 mg Vial 100 MG in NS 0.9% 250 ml 230 ML IV SCH (22:48)
[2021-05-21] MEDS: cefTRIAXone 1 gm/50 mL NS BAG 1 GM/50 ML BAG IVPB SCH ×2 (00:02→23:35)
[2021-05-21 06:21] LABS: INR 1.23 (0.86-1.15)
[2021-05-21 06:39] LABS: Albumin/Globulin Ratio 0.9 (1-3); Calcium 8.5 mg/dL (8.6-10.3); Globulin 3.3 g/dL (2-4); Potassium 4.3 mmol/L (3.5-5.0); Total Bilirubin 0.3 mg/dL (0.2-1.0); Total Protein 6.3 g/dL (6.4-8.9)
[2021-05-21] MEDS: Ipratropium HFA INHALER(NF) (ALTERNATIVE = NEBS) INH SCH ×4 (07:14→19:14)
[2021-05-21] MEDS: Mometasone/Formoter 200/5 MDI INH SCH ×2 (07:15→19:16)
[2021-05-21] MEDS: methylPREDNISolone SOD 40 mg/ml 1 ml VIAL IV SCH ×2 (07:50→20:56)
[2021-05-21] MEDS: Magnesium Hydroxide LIQ 30 ML UDC PO SCH ×2 (07:50→20:56)
[2021-05-21] MEDS: Enoxaparin 30 MG/0.3 ML SYR SUBCUT SCH ×2 (07:53→20:56)
[2021-05-21] MEDS: DOXYcycline 100 MG in NS 0.9% 250 ml 250 ML IVPB SCH ×2 (07:56→20:39)
[2021-05-21] MEDS: Remdesivir 100 mg Vial 100 MG in NS 0.9% 250 ml 230 ML IV SCH (23:11)
[2021-05-22 05:53] LABS: ABS Lymphocytes 0.4 10^3/ul (1.0-4.8); ABS Monocytes 0.6 10^3/ul (0-0.8); Hematocrit 39 % (35-47); Hemoglobin 12.8 g/dL (12.0-16.0); Lymphocyte % 3.2 %; Mean Corpuscular HGB Conc 33 g/dL (31-36); Mean Corpuscular Hemoglobin 30 pg (27-31); Mean Corpuscular Volume 89 fL (80-97); Platelet Count 263 10^3/uL (150-450); Red Blood Count 4.34 10^6 /uL (3.70-4.87); Red Cell Distribution Width 14 % (10-15)
[2021-05-22 06:02] LABS: INR 1.21 (0.86-1.15)
[2021-05-22 06:08] LABS: Albumin 2.9 g/dL (3.2-5.2); Calcium 8.1 mg/dL (8.6-10.3); Globulin 2.8 g/dL (2-4); Potassium 4.2 mmol/L (3.5-5.0); Total Bilirubin 0.3 mg/dL (0.2-1.0); Total Protein 5.7 g/dL (6.4-8.9)
[2021-05-22] MEDS: Mometasone/Formoter 200/5 MDI INH SCH ×2 (08:07→19:32)
[2021-05-22] MEDS: Ipratropium HFA INHALER(NF) (ALTERNATIVE = NEBS) INH SCH ×4 (08:13→19:31)
[2021-05-22] MEDS: Albuterol HFA INHALER 8 gm MDI INH PRN ×4 (08:13→19:35)
[2021-05-22] MEDS: Enoxaparin 30 MG/0.3 ML SYR SUBCUT SCH ×2 (08:41→21:36)
[2021-05-22] MEDS: methylPREDNISolone SOD 40 mg/ml 1 ml VIAL IV SCH ×2 (08:42→21:37)
[2021-05-22] MEDS: Magnesium Hydroxide LIQ 30 ML UDC PO SCH ×2 (08:42→21:37)
[2021-05-22] MEDS: DOXYcycline 100 MG in NS 0.9% 250 ml 250 ML IVPB SCH ×2 (08:59→23:19)
[2021-05-22 09:22] LABS: PCO2 Arterial 33 mmHg (35-45); PO2 Arterial 60 mmHg (80-100)
[2021-05-22] MEDS: cefTRIAXone 1 gm/50 mL NS BAG 1 GM/50 ML BAG IVPB SCH (21:33)
[2021-05-22] MEDS: Remdesivir 100 mg Vial 100 MG in NS 0.9% 250 ml 230 ML IV SCH (22:19)
[2021-05-23] MEDS: Ipratropium HFA INHALER(NF) (ALTERNATIVE = NEBS) INH SCH ×3 (07:23→15:33)
[2021-05-23] MEDS: Mometasone/Formoter 200/5 MDI INH SCH (07:23)
[2021-05-23] MEDS: Albuterol HFA INHALER 8 gm MDI INH PRN ×2 (07:23→11:30)
[2021-05-23] MEDS: DOXYcycline 100 MG in NS 0.9% 250 ml 250 ML IVPB SCH (09:41)
[2021-05-23] MEDS: Magnesium Hydroxide LIQ 30 ML UDC PO SCH (10:04)
[2021-05-23] MEDS: Enoxaparin 30 MG/0.3 ML SYR SUBCUT SCH (10:04)
[2021-05-23 11:38] VITALS: BP 155/82
== END 2021-05-23 15:35 | disposition home or self-care (01) | DRG 177 ==
LOC: MED 11:58 → ED 11:58 → SUATTDRO 19:37 → MED 21:55 → SUATTDRO 05-19 08:00
PROVIDERS: ADMIT Internal Medicine; ATTEND Internal Medicine

== ENCOUNTER 2021-05-27 16:11 | Inpatient (IN) ==
[2021-05-27] MEDS ORDERED: NS 0.9% 1000 ml BAG 1,000 ML IV ONE (16:28)
[2021-05-27] MEDS ORDERED: methylPREDNISolone 125 mg 2 ML VIAL IV ONE (16:28)
[2021-05-27 17:00] LABS: PCO2 Arterial 39 mmHg (35-45); PO2 Arterial 112 mmHg (80-100)
[2021-05-27 17:00] LABS: ABS Lymphocytes 0.5 10^3/ul (1.0-4.8); ABS Monocytes 1.5 10^3/ul (0-0.8); ABS Neutrophils 18.1 10^3/ul (1.5-7.7); Eosinophil % 0.2 %; Hematocrit 43 % (35-47); Lymphocyte % 2.6 %; Mean Corpuscular HGB Conc 33 g/dL (31-36); Mean Corpuscular Hemoglobin 30 pg (27-31); Mean Corpuscular Volume 91 fL (80-97); Mean Platelet Volume 9.7 fL (7.4-10.4); Nucleated Red Blood Cells % 0.1; Platelet Count 209 10^3/uL (150-450); Red Blood Count 4.72 10^6 /uL (3.70-4.87); Red Cell Distribution Width 15 % (10-15); White Blood Count 20.1 10^3/uL (3.5-10.8)
[2021-05-27 17:05] LABS: Activated Partial Thrombo Time 19.2 seconds (26.0-38.0); INR 0.98 (0.86-1.15)
[2021-05-27] MEDS ORDERED: DOXYcycline 100 MG in NS 0.9% 250 ml 250 ML IVPB ONE (17:16)
[2021-05-27 17:43] LABS: Troponin I 0.04 ng/mL (<0.03)
[2021-05-27] MEDS ORDERED: Diltiazem IV push/loading dose 5 MG/ML 5 ML vial (25 mg) IV SLOW PU ONE (18:07)
[2021-05-27 18:19] LABS: ALT 13 U/L (7-52); Albumin 3.1 g/dL (3.2-5.2); Albumin/Globulin Ratio 1.1 (1-3); Blood Urea Nitrogen 21 mg/dL (6-24); C Reactive Protein 5.52 mg/L (<8.01); CO2 Carbon Dioxide 19 mmol/L (22-32); Calcium 8.1 mg/dL (8.6-10.3); Chloride 108 mmol/L (101-111); Globulin 2.7 g/dL (2-4); Glucose 237 mg/dL (70-100); Sodium 139 mmol/L (135-145); Total Protein 5.8 g/dL (6.4-8.9)
[2021-05-27 18:20] LABS: AST 14 U/L (13-39); Anion Gap 12 mmol/L (2-11); Potassium 4.1 mmol/L (3.5-5.0)
[2021-05-27] MEDS ORDERED: Vancomycin 1,000 MG in NS 0.9% 250 ml 250 ML IVPB ONE (18:57)
[2021-05-27 18:58] LABS: Alkaline Phosphatase 75 U/L (35-149); Magnesium 2.2 mg/dL (1.9-2.7)
[2021-05-27] MEDS ORDERED: Vancomycin per Pharmacy 1 EA NOTE FOLLOW UP SCH (19:00)
[2021-05-27] MEDS ORDERED: Levalbuterol HFA INHALER MDI INH SCH (19:00)
[2021-05-27 19:01] LABS: Phosphorus 3.2 mg/dL (2.5-5.0)
[2021-05-27] MEDS ORDERED: Iodixanol (CONTRAST) 320 MG/ML 100 ML SDV IV ONE (21:44)
[2021-05-27] MEDS: Enoxaparin 40 MG/0.4 ML SYR SUBCUT SCH (23:05)
[2021-05-27 23:19] LABS: Urine Appearance Cloudy; Urine Bilirubin Negative (Negative); Urine Blood Negative (Negative); Urine Color Yellow; Urine Glucose 3+(>=500 mg/dL) (Negative); Urine Ketones Trace (Negative); Urine Nitrite Negative (Negative); Urine Protein 1+(30 mg/dL) (Negative); Urine Specific Gravity 1.031 (1.002-1.030); Urine Urobilinogen Negative (Negative)
[2021-05-27 23:26] LABS: Urine Bacteria 1+ (Absent); Urine Red Blood Cell 3+(>10/hpf) (Absent); Urine Squamous Epithelial Cell Present (Absent); Urine White Blood Cell 3+(>20/hpf) (Absent)
[2021-05-27] MEDS: Levalbuterol HFA INHALER MDI INH SCH (23:53)
[2021-05-28 00:09] LABS: Troponin I 0.09 ng/mL (<0.03)
[2021-05-28] MEDS: methylPREDNISolone SOD 40 mg/ml 1 ml VIAL IV SCH ×3 (01:28→18:09)
[2021-05-28] MEDS: Levalbuterol HFA INHALER MDI INH SCH ×7 (02:59→23:06)
[2021-05-28 03:11] LABS: ABS Basophils 0.1 10^3/ul (0-0.2); ABS Lymphocytes 0.3 10^3/ul (1.0-4.8); ABS Monocytes 0.3 10^3/ul (0-0.8); ABS Neutrophils 16.3 10^3/ul (1.5-7.7); Hematocrit 43 % (35-47); Hemoglobin 13.7 g/dL (12.0-16.0); Lymphocyte % 1.7 %; Mean Corpuscular HGB Conc 32 g/dL (31-36); Mean Corpuscular Hemoglobin 29 pg (27-31); Mean Corpuscular Volume 91 fL (80-97); Mean Platelet Volume 9.7 fL (7.4-10.4); Platelet Count 199 10^3/uL (150-450); Red Blood Count 4.67 10^6 /uL (3.70-4.87); Red Cell Distribution Width 15 % (10-15)
[2021-05-28 03:17] LABS: Albumin 3.2 g/dL (3.2-5.2); Anion Gap 7 mmol/L (2-11); CO2 Carbon Dioxide 24 mmol/L (22-32); Chloride 108 mmol/L (101-111); Magnesium 2.2 mg/dL (1.9-2.7); Potassium 4.3 mmol/L (3.5-5.0); Sodium 139 mmol/L (135-145)
[2021-05-28 03:23] LABS: ALT 14 U/L (7-52); AST 11 U/L (13-39); Albumin/Globulin Ratio 1.2 (1-3); Alkaline Phosphatase 75 U/L (35-149); Blood Urea Nitrogen 18 mg/dL (6-24); Globulin 2.7 g/dL (2-4); Glucose 291 mg/dL (70-100); Phosphorus 3.5 mg/dL (2.5-5.0); Total Protein 5.9 g/dL (6.4-8.9)
[2021-05-28 04:02] LABS: Troponin I 0.08 ng/mL (<0.03)
[2021-05-28] MEDS ORDERED: Levalbuterol HFA INHALER MDI INH SCH (07:00)
[2021-05-28] MEDS ORDERED: Vancomycin 750 MG in NS 0.9% 250 ML IVPB SCH (11:00)
[2021-05-28] MEDS ORDERED: Levalbuterol HFA INHALER MDI INH PRN (11:17)
[2021-05-28] MEDS ORDERED: Morphine 2 MG/ML SYRINGE IV ONE (11:22)
[2021-05-28] MEDS ORDERED: Ondansetron 4 mg VIAL 2 MG/ML 2 ml VIAL IV PRN (19:34)
[2021-05-28] MEDS: Enoxaparin 40 MG/0.4 ML SYR SUBCUT SCH (19:36)
[2021-05-28] MEDS: Morphine 2 MG/ML SYRINGE IV PRN (19:37)
[2021-05-28] MEDS: cefTRIAXone 1 gm/50 mL NS BAG 1 GM/50 ML BAG IVPB SCH (21:36)
[2021-05-29] MEDS: methylPREDNISolone SOD 40 mg/ml 1 ml VIAL IV SCH ×3 (01:54→16:11)
[2021-05-29] MEDS: Levalbuterol HFA INHALER MDI INH SCH ×3 (03:01→10:03)
[2021-05-29 04:54] LABS: Hematocrit 40 % (35-47); Hemoglobin 12.8 g/dL (12.0-16.0); Mean Corpuscular HGB Conc 33 g/dL (31-36); Mean Corpuscular Hemoglobin 29 pg (27-31); Mean Corpuscular Volume 91 fL (80-97); Platelet Count 179 10^3/uL (150-450); Red Blood Count 4.36 10^6 /uL (3.70-4.87); Red Cell Distribution Width 15 % (10-15); White Blood Count 23.5 10^3/uL (3.5-10.8)
[2021-05-29 05:14] LABS: ABS Basophils 0.1 10^3/ul (0-0.2); ABS Lymphocytes 0.2 10^3/ul (1.0-4.8); ABS Monocytes 1.1 10^3/ul (0-0.8); ABS Neutrophils 22.1 10^3/ul (1.5-7.7)
[2021-05-29 05:18] LABS: Calcium 8.6 mg/dL (8.6-10.3); Potassium 4.3 mmol/L (3.5-5.0)
[2021-05-29] MEDS ORDERED: Vancomycin Trough Check NOTE FOLLOW UP ONE (10:30)
[2021-05-29] MEDS: guaiFENesin 100 mg/5 ml LIQ unit dose cup PO PRN ×2 (12:19→21:20)
[2021-05-29] MEDS: Mometasone/Formoter 200/5 MDI INH SCH ×2 (18:48→23:50)
[2021-05-29] MEDS: Albuterol HFA INHALER 8 gm MDI INH PRN (18:49)
[2021-05-29] MEDS: Morphine 2 MG/ML SYRINGE IV PRN (19:36)
[2021-05-29] MEDS: Enoxaparin 40 MG/0.4 ML SYR SUBCUT SCH (21:19)
[2021-05-29] MEDS: cefTRIAXone 1 gm/50 mL NS BAG 1 GM/50 ML BAG IVPB SCH (21:19)
[2021-05-30] MEDS: methylPREDNISolone SOD 40 mg/ml 1 ml VIAL IV SCH ×3 (01:33→16:42)
[2021-05-30 06:05] LABS: Hematocrit 41 % (35-47); Mean Corpuscular HGB Conc 32 g/dL (31-36); Mean Corpuscular Hemoglobin 29 pg (27-31); Mean Corpuscular Volume 91 fL (80-97); Mean Platelet Volume 9.9 fL (7.4-10.4); Platelet Count 179 10^3/uL (150-450); Red Blood Count 4.45 10^6 /uL (3.70-4.87); Red Cell Distribution Width 15 % (10-15); White Blood Count 23.1 10^3/uL (3.5-10.8)
[2021-05-30 06:28] LABS: ABS Lymphocytes 0.3 10^3/ul (1.0-4.8); ABS Monocytes 1.4 10^3/ul (0-0.8); ABS Neutrophils 21.4 10^3/ul (1.5-7.7); Eosinophil % 0.1 %; Lymphocyte % 1.2 %
[2021-05-30 06:31] LABS: Calcium 8.8 mg/dL (8.6-10.3); Magnesium 2.5 mg/dL (1.9-2.7); Potassium 4.6 mmol/L (3.5-5.0)
[2021-05-30 06:37] LABS: Phosphorus 3.6 mg/dL (2.5-5.0)
[2021-05-30] MEDS: Albuterol HFA INHALER 8 gm MDI INH PRN (08:33)
[2021-05-30] MEDS: Mometasone/Formoter 200/5 MDI INH SCH ×2 (08:33→19:42)
[2021-05-30] MEDS: Albuterol HFA INHALER 8 gm MDI INH SCH ×3 (11:56→19:42)
[2021-05-30] MEDS: Morphine 2 MG/ML SYRINGE IV PRN (12:53)
[2021-05-30] MEDS: Enoxaparin 40 MG/0.4 ML SYR SUBCUT SCH (21:10)
[2021-05-30] MEDS: cefTRIAXone 1 gm/50 mL NS BAG 1 GM/50 ML BAG IVPB SCH (21:10)
[2021-05-31] MEDS: methylPREDNISolone SOD 40 mg/ml 1 ml VIAL IV SCH (01:30)
[2021-05-31] MEDS: Albuterol HFA INHALER 8 gm MDI INH PRN ×2 (01:36→16:51)
[2021-05-31] MEDS: Mometasone/Formoter 200/5 MDI INH SCH ×2 (08:45→19:09)
[2021-05-31] MEDS: Albuterol HFA INHALER 8 gm MDI INH SCH ×4 (08:45→19:09)
[2021-05-31] MEDS ORDERED: Metoprolol Tartrate 5 mg VIAL 5 ml VIAL (1 mg/ml) IV PRN (10:14)
[2021-05-31] MEDS ORDERED: Metoprolol Tartrate 5 mg VIAL 5 ml VIAL (1 mg/ml) ONE (10:18)
[2021-05-31] MEDS ORDERED: Amiodarone 150 mg IVPREMIX 150 MG/100 ML BAG IV ONE ×2 (10:28→10:29)
[2021-05-31] MEDS ORDERED: Amiodarone 360 MG IVPREMIX 360 MG/200 ML BAG IV SCH ×2 (10:38→16:38)
[2021-05-31] MEDS: guaiFENesin 100 mg/5 ml LIQ unit dose cup PO PRN (14:55)
[2021-05-31] MEDS ORDERED: Calcium Carb (TUMS) 500 mg CHEW TAB PO PRN (17:32)
[2021-05-31] MEDS: Morphine 2 MG/ML SYRINGE IV PRN (18:17)
[2021-05-31] MEDS: Enoxaparin 40 MG/0.4 ML SYR SUBCUT SCH (20:31)
[2021-06-01] MEDS: Morphine 2 MG/ML SYRINGE IV PRN ×2 (01:57→21:29)
[2021-06-01] MEDS: Albuterol HFA INHALER 8 gm MDI INH SCH ×4 (06:57→19:25)
[2021-06-01] MEDS: Mometasone/Formoter 200/5 MDI INH SCH ×2 (07:00→19:25)
[2021-06-01] MEDS ORDERED: Digoxin IV 0.5 MG/2 ML AMP (0.25 MG/ML) ONE (09:00)
[2021-06-01] MEDS ORDERED: Amiodarone 150 mg IVPREMIX 150 MG/100 ML BAG IV ONE (12:02)
[2021-06-01] MEDS ORDERED: Amiodarone 360 MG IVPREMIX 360 MG/200 ML BAG IV SCH ×2 (12:05→18:05)
[2021-06-01] MEDS ORDERED: Digoxin IV 0.5 MG/2 ML AMP (0.25 MG/ML) IV SLOW PU ONE (12:28)
[2021-06-01] MEDS: Amiodarone 360 MG IVPREMIX 360 MG/200 ML BAG IV SCH ×3 (13:42→18:59)
[2021-06-01] MEDS: Enoxaparin 40 MG/0.4 ML SYR SUBCUT SCH (21:28)
[2021-06-02] MEDS: Morphine 2 MG/ML SYRINGE IV PRN ×5 (06:42→21:58)
[2021-06-02] MEDS: Amiodarone 360 MG IVPREMIX 360 MG/200 ML BAG IV SCH (07:05)
[2021-06-02] MEDS: Mometasone/Formoter 200/5 MDI INH SCH ×2 (08:55→19:42)
[2021-06-02] MEDS: Albuterol HFA INHALER 8 gm MDI INH SCH ×4 (08:56→19:42)
[2021-06-02] MEDS: Amiodarone 400 mg TAB PO SCH ×2 (09:15→20:33)
[2021-06-03] MEDS: Morphine 2 MG/ML SYRINGE IV PRN ×4 (01:37→21:48)
[2021-06-03] MEDS: Albuterol HFA INHALER 8 gm MDI INH SCH ×4 (07:34→20:21)
[2021-06-03] MEDS: Mometasone/Formoter 200/5 MDI INH SCH ×2 (07:34→20:22)
[2021-06-03] MEDS: Amiodarone 400 mg TAB PO SCH ×2 (08:05→21:06)
[2021-06-03] MEDS ORDERED: Albuterol HFA INHALER 8 gm MDI INH PRN (20:20)
[2021-06-03] MEDS ORDERED: Senna TAB 8.6 mg TAB PO PRN (20:48)
[2021-06-04] MEDS: Amiodarone 400 mg TAB PO SCH ×3 (00:22→21:26)
[2021-06-04] MEDS: Nystatin TOP POWDER 15 GM BTL TOPICAL SCH ×4 (01:14→22:40)
[2021-06-04] MEDS: Morphine 2 MG/ML SYRINGE IV PRN ×4 (01:15→19:33)
[2021-06-04] MEDS: Albuterol HFA INHALER 8 gm MDI INH SCH ×2 (05:24→11:34)
[2021-06-04] MEDS: Mometasone/Formoter 200/5 MDI INH SCH ×2 (08:29→19:54)
[2021-06-04] MEDS ORDERED: LORazepam 2 mg VIAL 1 ml IV PUSH PRN (10:02)
[2021-06-04] MEDS ORDERED: Lorazepam PYXIS KEY PRN (10:02)
[2021-06-04] MEDS: Magic MouthWash1-BEN/MAAL/LIDO 180 ML BTL SWISH SPIT SCH ×3 (11:57→21:27)
[2021-06-04] MEDS ORDERED: Albuterol/Ipratropium NEB.SOL (2.5/0.5 MG) 3 ML NEB.SOLN INH PRN (12:00)
[2021-06-04] MEDS: Nystatin SUSPENSION 100,000 UNITS/ML UDC PO SCH ×3 (14:40→21:27)
[2021-06-04] MEDS ORDERED: Polyethylene Glycol 3350 17 GM PACKET PO PRN (17:44)
[2021-06-05] MEDS: Morphine 2 MG/ML SYRINGE IV PRN ×4 (05:47→23:44)
[2021-06-05] MEDS: Amiodarone 400 mg TAB PO SCH ×2 (07:38→20:36)
[2021-06-05] MEDS: Nystatin SUSPENSION 100,000 UNITS/ML UDC PO SCH ×4 (07:38→20:36)
[2021-06-05] MEDS: Magic MouthWash1-BEN/MAAL/LIDO 180 ML BTL SWISH SPIT SCH ×4 (07:38→20:36)
[2021-06-05] MEDS: Mometasone/Formoter 200/5 MDI INH SCH ×2 (08:23→20:28)
[2021-06-05] MEDS: Nystatin TOP POWDER 15 GM BTL TOPICAL SCH ×3 (11:02→20:36)
[2021-06-05] MEDS ORDERED: Acetaminophen IV 1 GM/100ML 100 ML IV PRN (19:32)
[2021-06-06] MEDS: Morphine 2 MG/ML SYRINGE IV PRN ×2 (05:32→11:42)
[2021-06-06] MEDS: Amiodarone 400 mg TAB PO SCH (07:00)
[2021-06-06] MEDS: Nystatin SUSPENSION 100,000 UNITS/ML UDC PO SCH ×2 (07:00→11:02)
[2021-06-06] MEDS: Magic MouthWash1-BEN/MAAL/LIDO 180 ML BTL SWISH SPIT SCH ×2 (07:00→11:02)
[2021-06-06] MEDS: Mometasone/Formoter 200/5 MDI INH SCH (07:43)
[2021-06-06] MEDS: Nystatin TOP POWDER 15 GM BTL TOPICAL SCH ×3 (09:17→20:18)
[2021-06-06 12:16] VITALS: BP 94/65
[2021-06-06] MEDS ORDERED: Morphine 2 MG/ML SYRINGE IV PRN ×2 (14:41→18:18)
[2021-06-06] MEDS: LORazepam 2 mg VIAL 1 ml IV PUSH PRN (16:47)
[2021-06-07 05:46] LABS: Rapid COVID-19 Molecular Detected (Undetected)
[2021-06-07 07:19] LABS: Rapid COVID-19 Molecular Undetected (Undetected)
[2021-06-07] MEDS: LORazepam 2 mg VIAL 1 ml IV PUSH PRN (07:26)
[2021-06-07] MEDS: Nystatin TOP POWDER 15 GM BTL TOPICAL SCH (07:27)
== END 2021-06-07 08:54 | disposition expired | DRG 871 ==
LOC: ED 16:11 → ICU 21:05 → SUATTDRO 21:05 → ICU 22:00
PROVIDERS: ADMIT Internal Medicine; ATTEND Internal Medicine